=== PATIENT | male | born 1945 | race American Indian/Alaskan Native ===

== ENCOUNTER 2019-03-03 09:28 | Emergency (ER) | payer MEDICARE, OTHER ==
[~2019-03-03] VITALS: Ht 170.2 cm; Wt 135.4 kg
[~2019-03-03 09:28] MED LIST: CARV-49 PO; CHOL100046 PO; CLIN150C8 PO; DABI75CA3 PO; EXEN2VIA SUBCUT; FEXO-124 PO; FURO-150 PO; INSU100V36 SQ; IRON150C5 PO; ISOS30TA PO; LANTUS SQ; MAGN200T5 PO; ROSU10TA2 PO
[2019-03-03 09:43] VITALS: BP 138/78
== END 2019-03-03 12:19 | disposition home or self-care (01) ==
LOC: ER 09:29
DX: I99.8 Other disorder of circulatory system (principal); M79.645 Pain in left finger(s); I48.91 Unspecified atrial fibrillation; E78.00 Pure hypercholesterolemia, unspecified; I10 Essential (primary) hypertension; E11.9 Type 2 diabetes mellitus without complications; G89.29 Other chronic pain; Z98.890 Other specified postprocedural states; Z88.8 Allergy status to other drugs, medicaments and biological substances; Z79.4 Long term (current) use of insulin; Z79.899 Other long term (current) drug therapy
CPT/HCPCS: 93005; 99283

== ENCOUNTER 2019-03-09 17:51 | Emergency (ER) | payer MEDICARE, OTHER ==
[~2019-03-09] VITALS: Ht 167.6 cm; Wt 131.8 kg
[2019-03-09 18:11] VITALS: BP 135/73
[2019-03-09] MEDS ORDERED: HYDR-4383 PO (19:17)
== END 2019-03-09 19:35 | disposition home or self-care (01) ==
LOC: ER 17:52
DX: I99.8 Other disorder of circulatory system (principal); M79.645 Pain in left finger(s); I48.92 Unspecified atrial flutter; E78.00 Pure hypercholesterolemia, unspecified; I10 Essential (primary) hypertension; E11.9 Type 2 diabetes mellitus without complications; G89.29 Other chronic pain; Z98.890 Other specified postprocedural states; Z88.8 Allergy status to other drugs, medicaments and biological substances; Z79.2 Long term (current) use of antibiotics; Z79.4 Long term (current) use of insulin; Z79.899 Other long term (current) drug therapy
CPT/HCPCS: 99283

== ENCOUNTER 2019-03-14 09:41 | Emergency (ER) | payer MEDICARE, OTHER ==
[~2019-03-14] VITALS: Ht 170.2 cm; Wt 133.0 kg
[~2019-03-14 09:41] MED LIST changes: +HYDR-4383 PO
[2019-03-14 09:53] VITALS: BP 137/89
[2019-03-14] MEDS ORDERED: CEPH-571 PO (11:04)
== END 2019-03-14 11:12 | disposition home or self-care (01) ==
LOC: ER 09:42
DX: L03.012 Cellulitis of left finger (principal); I48.91 Unspecified atrial fibrillation; I10 Essential (primary) hypertension; E78.00 Pure hypercholesterolemia, unspecified; E11.9 Type 2 diabetes mellitus without complications; G89.29 Other chronic pain; M54.9 Dorsalgia, unspecified; Z88.8 Allergy status to other drugs, medicaments and biological substances; Z79.4 Long term (current) use of insulin
CPT/HCPCS: 73130; 99283

== ENCOUNTER 2019-03-22 14:15 | Outpatient (CLI) | payer MEDICARE, OTHER ==
[~2019-03-22 14:15] MED LIST changes: +CEPH-571 PO
== END 2019-03-22 23:59 | disposition home or self-care (01) ==
LOC: VAS 14:15
PROVIDERS: ATTEND Family Medicine
DX: L98.499 Non-pressure chronic ulcer of skin of other sites with unspecified severity (principal); R20.9 Unspecified disturbances of skin sensation; E11.9 Type 2 diabetes mellitus without complications
CPT/HCPCS: 93931

== ENCOUNTER 2019-08-15 10:53 | Emergency (ER) | payer MEDICARE, OTHER ==
[~2019-08-15] VITALS: Ht 170.2 cm; Wt 136.0 kg
[2019-08-15 12:59] VITALS: BP 142/75
== END 2019-08-15 13:01 | disposition home or self-care (01) ==
LOC: ER 10:54
DX: S20.212A Contusion of left front wall of thorax, initial encounter (principal); M25.532 Pain in left wrist; M25.562 Pain in left knee; I48.91 Unspecified atrial fibrillation; E78.00 Pure hypercholesterolemia, unspecified; I10 Essential (primary) hypertension; E11.9 Type 2 diabetes mellitus without complications; G89.29 Other chronic pain; Z98.890 Other specified postprocedural states; Z88.8 Allergy status to other drugs, medicaments and biological substances; Z79.2 Long term (current) use of antibiotics; Z79.4 Long term (current) use of insulin; Z79.899 Other long term (current) drug therapy; W10.1XXA Fall (on)(from) sidewalk curb, initial encounter; Y93.89 Activity, other specified; Y92.89 Other specified places as the place of occurrence of the external cause; Y99.8 Other external cause status
CPT/HCPCS: 71046; 73110; 73130; 73564; 93005; 99284

== ENCOUNTER 2019-11-01 15:42 | Emergency (ER) | payer MEDICARE, OTHER ==
[~2019-11-01] VITALS: Ht 170.2 cm; Wt 134.5 kg
[2019-11-01 15:52] VITALS: BP 141/62
[2019-11-01] MEDS ORDERED: SULF1TAB49 PO (17:13)
[2019-11-01] MEDS ORDERED: mupirocin 2% ointment 22GM TP STA (17:14)
== END 2019-11-01 17:25 | disposition home or self-care (01) ==
LOC: ER 15:43
DX: R21 Rash and other nonspecific skin eruption (principal); I48.91 Unspecified atrial fibrillation; E78.00 Pure hypercholesterolemia, unspecified; I10 Essential (primary) hypertension; E11.9 Type 2 diabetes mellitus without complications; G89.29 Other chronic pain; Z98.890 Other specified postprocedural states; Z88.8 Allergy status to other drugs, medicaments and biological substances; Z79.4 Long term (current) use of insulin; Z79.899 Other long term (current) drug therapy
CPT/HCPCS: 99283

== ENCOUNTER 2020-04-25 09:23 | Inpatient (IN) | payer MEDICARE, OTHER ==
[~2020-04-25] VITALS: Ht 170.2 cm; Wt 136.0 kg
--- NOTE | 2020-04-25 09:37 | NUR ---
Assumed care of patient. Xray at bedside.
[2020-04-25 10:00] LABS: BASOPHILS % (AUTO) 0.5 % (0-1); EOSINOPHILS # (AUTO) 0.2 X10'3 (0-0.9); EOSINOPHILS % (AUTO) 2.6 % (0-6); HEMATOCRIT 44.2 % (42.0-52.0); HEMOGLOBIN 14.4 g/dl (14.0-17.9); LYMPHOCYTES # (AUTO) 1.6 X10'3 (1.1-4.8); LYMPHOCYTES % (AUTO) 18.7 % (21-51); MEAN CORPUSCULAR HEMOGLOBIN 29.9 PG (27.0-31.0); MEAN CORPUSCULAR HGB CONC 32.5 g/dL (33.0-36.5); MEAN CORPUSCULAR VOLUME 92.1 FL (78-98); MONOCYTES # (AUTO) 0.8 X10'3 (0-0.9); MONOCYTES % (AUTO) 9.4 % (2-12); NEUTROPHILS # (AUTO) 6.1 X10'3 (1.8-7.7); NEUTROPHILS % (AUTO) 68.8 % (42-75); PLATELET COUNT 142 X10'3 (140-440); RED CELL DISTRIBUTION WIDTH 15.6 % (11.5-14.5); WHITE BLOOD COUNT 8.8 X10'3 (4.5-11.0)
[2020-04-25 10:08] LABS: PARTIAL THROMBOPLASTIN TIME 44 SECONDS (22-32)
[2020-04-25 10:11] LABS: ALANINE AMINOTRANSFERASE 51 U/L (12-78); ALBUMIN 2.6 G/DL (3.4-5.0); ALBUMIN/GLOBULIN RATIO 0.6 (1.1-1.5); ALKALINE PHOSPHATASE 140 IU/L (46-116); ANION GAP 8 (8-16); ASPARTATE AMINO TRANSFERASE 46 U/L (10-37); BILIRUBIN,TOTAL 0.8 MG/DL (0.1-1.0); BLOOD UREA NITROGEN 55 MG/DL (7-18); BUN/CREATININE RATIO 20.4 (5.4-32.0); CALCIUM 8.2 MG/DL (8.5-10.1); CHLORIDE 106 MMOL/L (99-107); CREATININE 2.69 MG/DL (0.60-1.10); GLUCOSE 105 MG/DL (70-104); POTASSIUM 4.4 MMOL/L (3.5-5.1); SODIUM 137 MMOL/L (135-145); TOTAL CARBON DIOXIDE 23.4 MMOL/L (24-32); TOTAL PROTEIN 7.2 G/DL (6.4-8.2); eGFR 23 ML/MIN
[2020-04-25 10:17] LABS: MAGNESIUM 2.7 MG/DL (1.5-2.4)
[2020-04-25] MEDS ORDERED: furosemide 10 MG/1 ML 10ml inj IV ONE (10:30)
--- NOTE | 2020-04-25 11:04 | NUR ---
Vascular at bedside.
[2020-04-25] MEDS ORDERED: MAGN500T2 PO (12:14)
[2020-04-25] MEDS ORDERED: DULA1.5P SQ (12:14)
[2020-04-25] MEDS ORDERED: FERR325T29 PO (12:14)
[2020-04-25] MEDS ORDERED: ROSU20TA31 PO (12:14)
[2020-04-25] MEDS ORDERED: CARV6.253 PO (12:14)
[2020-04-25] MEDS ORDERED: CHOL10002 PO (12:14)
[2020-04-25] MEDS ORDERED: NOVLG SQ (12:14)
[2020-04-25] MEDS ORDERED: FURO40TA4 PO (12:14)
[2020-04-25] MEDS ORDERED: LANTUS SQ (12:14)
[2020-04-25] MEDS ORDERED: FEXO-62 PO (12:14)
[2020-04-25] MEDS ORDERED: ISOS30TA6 PO (12:14)
[2020-04-25] MEDS ORDERED: DABI75CA3 PO (12:14)
[2020-04-25] MEDS ORDERED: acetaminophen 325mg tablet PO PRN (12:30)
[2020-04-25] MEDS ORDERED: mag hydrox/Alum hydrox/simeth 30ml oral suspension PO PRN (12:30)
[2020-04-25] MEDS ORDERED: ondansetron/PF 4mg/2ml inj IV PRN (12:30)
[2020-04-25] MEDS ORDERED: magnesium hydroxide 30ml (MOM) UD suspension PO PRN (12:30)
--- NOTE | 2020-04-25 14:30 | NUR ---
bs checked it was 72 pt given a snack
--- NOTE | 2020-04-25 14:41 | NUR ---
called report to tele to tessie zeng will call back
--- NOTE | 2020-04-25 15:11 | NUR ---
Finger stick BG 73. Pt given juice.
--- NOTE | 2020-04-25 15:21 | NUR ---
Patient in room ED 3. I have received report from Vilma GONGORA and had the opportunity to ask questions and assume patient care.
[2020-04-25 15:45] VITALS: BP 165/100
[2020-04-25 18:00] VITALS: BP 161/81
--- NOTE | 2020-04-25 18:43 | NUR ---
Problems reprioritized. Patient report given, questions answered & plan of care reviewed with Brittany GONGORA.
[2020-04-25] MEDS ORDERED: insulin Lispro (HumaLOG) vial - multi-dose SQ PRN (21:00)
[2020-04-25] MEDS: magnesium oxide 400mg tablet PO SCH (21:45)
[2020-04-25] MEDS: furosemide 40mg/4ml inj IV SCH (21:45)
[2020-04-25] MEDS: carvedilol 6.25mg tablet PO SCH (21:45)
[2020-04-25 22:50] LABS: HEMOGLOBIN A1C 7.9 % (4.5-6.2)
[2020-04-25 23:00] VITALS: BP 159/83
[2020-04-26 03:00] VITALS: BP 165/75
[2020-04-26 06:00] VITALS: BP 144/83
--- NOTE | 2020-04-26 06:00 | NUR ---
Patient in room PCU 3015. I have received report from Brittany GONGORA and had the opportunity to ask questions and assume patient care.
[2020-04-26 06:51] LABS: BASOPHILS % (AUTO) 0.5 % (0-1); EOSINOPHILS # (AUTO) 0.2 X10'3 (0-0.9); EOSINOPHILS % (AUTO) 2.5 % (0-6); HEMATOCRIT 42.4 % (42.0-52.0); HEMOGLOBIN 13.9 g/dl (14.0-17.9); LYMPHOCYTES # (AUTO) 1.6 X10'3 (1.1-4.8); LYMPHOCYTES % (AUTO) 19.4 % (21-51); MEAN CORPUSCULAR HEMOGLOBIN 30.4 PG (27.0-31.0); MEAN CORPUSCULAR HGB CONC 32.9 g/dL (33.0-36.5); MEAN CORPUSCULAR VOLUME 92.6 FL (78-98); MEAN PLATELET VOLUME 9.1 FL (7.4-10.4); MONOCYTES # (AUTO) 0.8 X10'3 (0-0.9); MONOCYTES % (AUTO) 9.4 % (2-12); NEUTROPHILS # (AUTO) 5.7 X10'3 (1.8-7.7); NEUTROPHILS % (AUTO) 68.2 % (42-75); PLATELET COUNT 131 X10'3 (140-440); RED BLOOD COUNT 4.58 X10'6 (4.70-6.10); RED CELL DISTRIBUTION WIDTH 15.6 % (11.5-14.5); WHITE BLOOD COUNT 8.4 X10'3 (4.5-11.0)
[2020-04-26 07:06] LABS: ALBUMIN 2.5 G/DL (3.4-5.0); ANION GAP 7 (8-16); BLOOD UREA NITROGEN 56 MG/DL (7-18); BUN/CREATININE RATIO 21.4 (5.4-32.0); CALCIUM 8.1 MG/DL (8.5-10.1); CHLORIDE 107 MMOL/L (99-107); CREATININE 2.62 MG/DL (0.60-1.10); GLUCOSE 79 MG/DL (70-104); SODIUM 140 MMOL/L (135-145); TOTAL CARBON DIOXIDE 26.3 MMOL/L (24-32); eGFR 24 ML/MIN
[2020-04-26 07:07] LABS: POTASSIUM 4.6 MMOL/L (3.5-5.1)
[2020-04-26] MEDS: carvedilol 6.25mg tablet PO SCH ×2 (08:00→20:13)
[2020-04-26] MEDS ORDERED: insulin glargine (Lantus) pen - multi-dose SQ SCH (08:00)
[2020-04-26] MEDS: atorvastatin 20mg tablet PO SCH (08:24)
[2020-04-26] MEDS: isosorbide mononitrate 30mg tab.SR.24H PO SCH (08:25)
[2020-04-26] MEDS: loratadine 10mg tablet PO SCH (08:25)
[2020-04-26] MEDS: ferrous sulfate 325mg tablet PO SCH (08:25)
[2020-04-26] MEDS: furosemide 40mg/4ml inj IV SCH ×2 (08:25→20:13)
[2020-04-26] MEDS: vitamin D (cholecalciferol) 1,000 unit tablet PO SCH (08:26)
--- NOTE | 2020-04-26 09:47 | NUR ---
Bryson MCKENNA made aware during rounds that dose of Coreg was held d/t irregular HR that drops as low as the 30s. No new orders received.
[2020-04-26 11:00] VITALS: BP 158/76
--- NOTE | 2020-04-26 14:18 | NUR ---
Pt with T2DM, current A1c is 7.9%. Pt seen at bedside reports he sees his MD q 3 months, takes his medications per rx, and checks his BG levels 3-4 times a day with resulting numbers 76-89 in the morning and 130s in later in the day. Pt states he doesn't follow any specific diet however tries to monitor his CHO intake overall. Pt provided with written and verbal DM education and RD contact information. Pt endorses a good appetite and states he's getting full from meals, documented with 75% PO intake at dinner last night on heart healthy diet, pending further documentation of PO intake for today. BG levels well controlled since admit, mostly in the 70s. Pt would benefit from the addition of CHO controlled diet if BG levels increase. Pt denies food allergies, difficulty chewing/swallowing, or constipation/diarrhea. Will continue to follow. Addendum: 04/26/20 at [address] Amended: Links added.
[2020-04-26 15:00] VITALS: BP 162/72
[2020-04-26 18:00] VITALS: BP 157/80
--- NOTE | 2020-04-26 18:20 | NUR ---
Patient in room PCU 3015. I have received report from Leona GONGORA and had the opportunity to ask questions and assume patient care.
--- NOTE | 2020-04-26 18:35 | NUR ---
Problems reprioritized. Patient report given, questions answered & plan of care reviewed with Claudy GONGORA.
[2020-04-26] MEDS: magnesium oxide 400mg tablet PO SCH (20:13)
--- NOTE | 2020-04-26 21:38 | NUR ---
Page Sent PAGER ID: [phone] MESSAGE: pt in [id number] Tio Pitts 74 y/o male here for exac diastolic heart failure, type 2 W[place], he has DM type 2. pt has orders to check FSBG AC/HS, 2100 BG 226, can we put him on our hyperglycemic protocol.- Claudy [phone]
--- NOTE | 2020-04-26 21:46 | NUR ---
spoke w/ Dr. Dexter regarding hyperglycemic protocol, recieved order to place pt on hyper/hypoglycemic protocol.
[2020-04-26] MEDS ORDERED: dextrose 50%-water 50ml dispensing syringe IV PRN ×2 (21:50)
[2020-04-26] MEDS ORDERED: glucagon, human recombinant 1mg kit SUBCUT PRN (21:50)
[2020-04-26] MEDS ORDERED: MESSAGE TO PHARMACY PO ONE (21:50)
[2020-04-26] MEDS ORDERED: dextrose ORAL solution 15 GM/59 ML bottle PO PRN ×2 (21:50)
[2020-04-26 22:00] VITALS: BP 152/77
[2020-04-26] MEDS: insulin glargine (Lantus) pen - multi-dose SQ SCH (22:58)
[2020-04-27] VITALS (7 sets, daily range): BP systolic 136–183; BP diastolic 71–145
--- NOTE | 2020-04-27 06:00 | NUR ---
Patient in room PCU 3015. I have received report from Claudy GONGORA and had the opportunity to ask questions and assume patient care.
--- NOTE | 2020-04-27 06:12 | NUR ---
Problems reprioritized. Patient report given, questions answered & plan of care reviewed with Leona GONGORA.
[2020-04-27 06:23] LABS: BASOPHILS % (AUTO) 0.4 % (0-1); EOSINOPHILS # (AUTO) 0.2 X10'3 (0-0.9); EOSINOPHILS % (AUTO) 2.3 % (0-6); HEMATOCRIT 42.6 % (42.0-52.0); LYMPHOCYTES # (AUTO) 1.4 X10'3 (1.1-4.8); LYMPHOCYTES % (AUTO) 16.3 % (21-51); MEAN CORPUSCULAR HEMOGLOBIN 30.1 PG (27.0-31.0); MEAN CORPUSCULAR HGB CONC 32.8 g/dL (33.0-36.5); MEAN CORPUSCULAR VOLUME 91.7 FL (78-98); MEAN PLATELET VOLUME 9.1 FL (7.4-10.4); MONOCYTES # (AUTO) 0.9 X10'3 (0-0.9); NEUTROPHILS # (AUTO) 6.1 X10'3 (1.8-7.7); PLATELET COUNT 129 X10'3 (140-440); RED BLOOD COUNT 4.65 X10'6 (4.70-6.10); RED CELL DISTRIBUTION WIDTH 15.4 % (11.5-14.5); WHITE BLOOD COUNT 8.6 X10'3 (4.5-11.0)
[2020-04-27 06:25] LABS: ALBUMIN 2.5 G/DL (3.4-5.0); ANION GAP 9 (8-16); BLOOD UREA NITROGEN 66 MG/DL (7-18); BUN/CREATININE RATIO 23.2 (5.4-32.0); CHLORIDE 107 MMOL/L (99-107); CREATININE 2.84 MG/DL (0.60-1.10); GLUCOSE 146 MG/DL (70-104); POTASSIUM 4.5 MMOL/L (3.5-5.1); SODIUM 139 MMOL/L (135-145); eGFR 22 ML/MIN
[2020-04-27] MEDS: atorvastatin 20mg tablet PO SCH (07:51)
[2020-04-27] MEDS: isosorbide mononitrate 30mg tab.SR.24H PO SCH (07:51)
[2020-04-27] MEDS: loratadine 10mg tablet PO SCH (07:51)
[2020-04-27] MEDS: vitamin D (cholecalciferol) 1,000 unit tablet PO SCH (07:51)
[2020-04-27] MEDS: ferrous sulfate 325mg tablet PO SCH (07:51)
[2020-04-27] MEDS: furosemide 40mg/4ml inj IV SCH ×2 (07:52→20:15)
[2020-04-27] MEDS: carvedilol 6.25mg tablet PO SCH ×2 (08:00→20:14)
[2020-04-27] MEDS: insulin Lispro (HumaLOG) vial - multi-dose SQ SCH ×2 (09:37→18:58)
--- NOTE | 2020-04-27 14:37 | NUR ---
Made Bryson MCKENNA aware of SBP in 170s. Rechecked manually bilaterally. No new orders received. Will continue to monitor.
--- NOTE | 2020-04-27 18:35 | NUR ---
Patient in room PCU 3015. I have received report from Leona GONGORA and had the opportunity to ask questions and assume patient care.
--- NOTE | 2020-04-27 18:44 | NUR ---
Problems reprioritized. Patient report given, questions answered & plan of care reviewed with Claudy GONGORA.
[2020-04-27] MEDS: magnesium oxide 400mg tablet PO SCH (20:14)
[2020-04-27] MEDS: insulin glargine (Lantus) pen - multi-dose SQ SCH (21:13)
[2020-04-28 02:00] VITALS: BP 128/77
[2020-04-28 06:21] LABS: BASOPHILS % (AUTO) 0.4 % (0-1); EOSINOPHILS # (AUTO) 0.2 X10'3 (0-0.9); EOSINOPHILS % (AUTO) 1.8 % (0-6); HEMATOCRIT 43.4 % (42.0-52.0); HEMOGLOBIN 14.2 g/dl (14.0-17.9); LYMPHOCYTES # (AUTO) 1.4 X10'3 (1.1-4.8); LYMPHOCYTES % (AUTO) 15.6 % (21-51); MEAN CORPUSCULAR HEMOGLOBIN 30.2 PG (27.0-31.0); MEAN CORPUSCULAR HGB CONC 32.7 g/dL (33.0-36.5); MEAN CORPUSCULAR VOLUME 92.4 FL (78-98); MEAN PLATELET VOLUME 9.5 FL (7.4-10.4); MONOCYTES # (AUTO) 0.8 X10'3 (0-0.9); MONOCYTES % (AUTO) 9.2 % (2-12); NEUTROPHILS # (AUTO) 6.6 X10'3 (1.8-7.7); PLATELET COUNT 132 X10'3 (140-440); RED CELL DISTRIBUTION WIDTH 15.2 % (11.5-14.5); WHITE BLOOD COUNT 9.1 X10'3 (4.5-11.0)
--- NOTE | 2020-04-28 06:39 | NUR ---
Patient in room PCU 3015. I have received report from Claudy GONGORA and had the opportunity to ask questions and assume patient care.
--- NOTE | 2020-04-28 06:42 | NUR ---
Problems reprioritized. Patient report given, questions answered & plan of care reviewed with Jenni GONGORA.
[2020-04-28 06:49] LABS: ALBUMIN 2.7 G/DL (3.4-5.0); ANION GAP 11 (8-16); BLOOD UREA NITROGEN 69 MG/DL (7-18); BUN/CREATININE RATIO 23.9 (5.4-32.0); CALCIUM 7.9 MG/DL (8.5-10.1); CHLORIDE 106 MMOL/L (99-107); CREATININE 2.89 MG/DL (0.60-1.10); GLUCOSE 137 MG/DL (70-104); POTASSIUM 4.3 MMOL/L (3.5-5.1); SODIUM 140 MMOL/L (135-145); TOTAL CARBON DIOXIDE 22.6 MMOL/L (24-32); eGFR 22 ML/MIN
[2020-04-28 07:00] VITALS: BP 138/81
[2020-04-28] MEDS: loratadine 10mg tablet PO SCH (07:28)
[2020-04-28] MEDS: vitamin D (cholecalciferol) 1,000 unit tablet PO SCH (07:28)
[2020-04-28] MEDS: furosemide 40mg/4ml inj IV SCH ×2 (07:28→19:06)
[2020-04-28] MEDS: isosorbide mononitrate 30mg tab.SR.24H PO SCH (07:28)
[2020-04-28] MEDS: atorvastatin 20mg tablet PO SCH (07:29)
[2020-04-28] MEDS: carvedilol 6.25mg tablet PO SCH ×2 (07:29→19:06)
[2020-04-28] MEDS: ferrous sulfate 325mg tablet PO SCH (07:29)
[2020-04-28] MEDS: insulin Lispro (HumaLOG) vial - multi-dose SQ SCH ×3 (08:00→18:49)
[2020-04-28 11:00] VITALS: BP 146/68
[2020-04-28 15:00] VITALS: BP 156/85
--- NOTE | 2020-04-28 18:35 | NUR ---
Patient in room PCU 3015. I have received report from Jenni GONGORA and had the opportunity to ask questions and assume patient care.
[2020-04-28 19:00] VITALS: BP 190/71
[2020-04-28] MEDS ORDERED: hydrALAZINE 20mg/ml inj. IV PRN (19:20)
[2020-04-28] MEDS: magnesium oxide 400mg tablet PO SCH (20:47)
[2020-04-28] MEDS ORDERED: insulin glargine (Lantus) pen - multi-dose SQ SCH (21:00)
[2020-04-28 22:00] VITALS: BP 153/79
[2020-04-29 02:00] VITALS: BP 158/98
--- NOTE | 2020-04-29 06:14 | NUR ---
Problems reprioritized. Patient report given, questions answered & plan of care reviewed with MANGO GONGORA.
[2020-04-29 06:18] LABS: BASOPHILS % (AUTO) 0.4 % (0-1); EOSINOPHILS # (AUTO) 0.2 X10'3 (0-0.9); EOSINOPHILS % (AUTO) 2.7 % (0-6); HEMATOCRIT 43.9 % (42.0-52.0); HEMOGLOBIN 14.3 g/dl (14.0-17.9); LYMPHOCYTES # (AUTO) 1.7 X10'3 (1.1-4.8); LYMPHOCYTES % (AUTO) 18.7 % (21-51); MEAN CORPUSCULAR HEMOGLOBIN 30.1 PG (27.0-31.0); MEAN CORPUSCULAR HGB CONC 32.5 g/dL (33.0-36.5); MEAN CORPUSCULAR VOLUME 92.7 FL (78-98); MEAN PLATELET VOLUME 9.3 FL (7.4-10.4); MONOCYTES # (AUTO) 0.8 X10'3 (0-0.9); MONOCYTES % (AUTO) 8.9 % (2-12); NEUTROPHILS # (AUTO) 6.3 X10'3 (1.8-7.7); NEUTROPHILS % (AUTO) 69.3 % (42-75); PLATELET COUNT 129 X10'3 (140-440); RED BLOOD COUNT 4.74 X10'6 (4.70-6.10); RED CELL DISTRIBUTION WIDTH 15.2 % (11.5-14.5); WHITE BLOOD COUNT 9.1 X10'3 (4.5-11.0)
[2020-04-29 06:29] LABS: ALBUMIN 2.6 G/DL (3.4-5.0); ANION GAP 11 (8-16); BLOOD UREA NITROGEN 68 MG/DL (7-18); BUN/CREATININE RATIO 23.9 (5.4-32.0); CHLORIDE 107 MMOL/L (99-107); CREATININE 2.85 MG/DL (0.60-1.10); GLUCOSE 85 MG/DL (70-104); POTASSIUM 4.3 MMOL/L (3.5-5.1); SODIUM 141 MMOL/L (135-145); TOTAL CARBON DIOXIDE 22.7 MMOL/L (24-32); eGFR 22 ML/MIN
--- NOTE | 2020-04-29 06:37 | NUR ---
Patient in room PCU 3015. I have received report from Ree GONGORA and had the opportunity to ask questions and assume patient care.
[2020-04-29 07:00] VITALS: BP 133/76
[2020-04-29] MEDS ORDERED: (Dulaglutide (Trulicity) 0.5 ML) SQ SCH (08:00)
[2020-04-29] MEDS: furosemide 40mg/4ml inj IV SCH (08:32)
[2020-04-29] MEDS: carvedilol 6.25mg tablet PO SCH (08:33)
[2020-04-29] MEDS: isosorbide mononitrate 30mg tab.SR.24H PO SCH (08:33)
[2020-04-29] MEDS: loratadine 10mg tablet PO SCH (08:33)
[2020-04-29] MEDS: vitamin D (cholecalciferol) 1,000 unit tablet PO SCH (08:33)
[2020-04-29] MEDS: ferrous sulfate 325mg tablet PO SCH (08:33)
[2020-04-29] MEDS: atorvastatin 20mg tablet PO SCH (08:33)
[2020-04-29] MEDS: insulin Lispro (HumaLOG) vial - multi-dose SQ SCH (08:46)
[2020-04-29 11:00] VITALS: BP 161/72
[2020-04-29] MEDS ORDERED: CARV3.12 PO (11:07)
--- NOTE | 2020-04-29 12:48 | NUR ---
Patient stable for discharge per MD orders. All discharge instructions reviewed with patient and all questions answered. New prescription called into pharmacy, home medications retreived from pharmacy and given to patien. PIV discontinued, cannula intact. Telemetry discontinued, telesales professional notified. Belongings collected and sent with patient. Patient picked up by family memeber in private vehicle, wheeled to lobby by staff.
--- NOTE | 2020-05-02 09:27 | NUR ---
Case Management DC follow up: spoke to pt via telephone. S/P: SOB Reports: "doing pretty good, still winded when walking around". Denies: acute cp, SOB at rest, resp distress, vertigo, syncope,weakness, blurry vision, N/V, HARTLEY, emergent general pain, abd tenderness/distension, fever. Verbalizes understanding of s/s that warrant 9-11/ER visit for evaluation. Verbalizes understanding of new Rx lower dose Coreg and why prescribed, resumes current Rx/taking as ordered, no ase r/t polypharmacy. Acknowledges need to schedule/keep follow up appts w/ PCP/Elena, Harmeet Cota, will refer pt to dentures lab technician & discuss adjusting lantus dose; pt states wakes up around 4am with BG very low; Wilfred, pt agrees to call and schedule follow up. Needs met, questions answered at DC, no further questions at this time. Addendum: 05/02/20 at 0931 by Rosa Elena Martin RN pt will see PCP/Dr Parker today, 05/02/20.
[2020-05-11] MEDS ORDERED: CARV3.122 PO (23:38)
== END 2020-04-29 12:36 | disposition home health service (06) | DRG 280 ==
LOC: ER 09:24 → ED HOLD 12:27 → PCU 3S 16:00
PROVIDERS: ADMIT Family Medicine; ATTEND Family Medicine
DX: I13.0 Hypertensive heart and chronic kidney disease with heart failure and stage 1 through stage 4 chronic kidney disease, or unspecified chronic kidney disease (principal); I21.A1 Myocardial infarction type 2; I50.33 Acute on chronic diastolic (congestive) heart failure; N17.9 Acute kidney failure, unspecified; I48.91 Unspecified atrial fibrillation; K21.9 Gastro-esophageal reflux disease without esophagitis; E78.00 Pure hypercholesterolemia, unspecified; E78.5 Hyperlipidemia, unspecified; Z90.49 Acquired absence of other specified parts of digestive tract; E11.22 Type 2 diabetes mellitus with diabetic chronic kidney disease; N18.9 Chronic kidney disease, unspecified; G89.29 Other chronic pain; M54.9 Dorsalgia, unspecified
CPT/HCPCS: 36415; 71045; 80048; 80053; 82800; 82948; 83036; 83735; 83880; 84484; 85025; 85610; 85730; 87081; 93005; 93306; 93971; 97110; 97116; 97162; 97530; 99285; G0378; J1815; J1940

== ENCOUNTER 2020-05-17 00:30 | Emergency (ER) | payer OTHER, MEDICARE ==
[~2020-05-17] VITALS: Ht 170.2 cm; Wt 136.4 kg
[~2020-05-17 00:30] MED LIST changes: -CARV-49 PO; -CEPH-571 PO; +CHOL10002 PO; -CHOL100046 PO; -CLIN150C8 PO; +CLON-529 PO; +DULA1.5P SQ; -EXEN2VIA SUBCUT; -FEXO-124 PO; +FEXO-62 PO; -FURO-150 PO; +FURO40TA4 PO; +HYDR-4069 PO; +HYDR-4070 PO; -HYDR-4383 PO; -INSU100V36 SQ; -IRON150C5 PO; -ISOS30TA PO; +ISOS30TA6 PO; -LANTUS SQ; -MAGN200T5 PO; +MAGN500T2 PO; +NOVLG SQ; -ROSU10TA2 PO; +ROSU20TA31 PO
[2020-05-17 01:02] LABS: BASOPHILS # (AUTO) 0.1 X10'3 (0-0.2); BASOPHILS % (AUTO) 0.7 % (0-1); EOSINOPHILS # (AUTO) 0.2 X10'3 (0-0.9); EOSINOPHILS % (AUTO) 2.7 % (0-6); HEMATOCRIT 40.5 % (42.0-52.0); HEMOGLOBIN 13.1 g/dl (14.0-17.9); LYMPHOCYTES # (AUTO) 1.3 X10'3 (1.1-4.8); LYMPHOCYTES % (AUTO) 17.6 % (21-51); MEAN CORPUSCULAR HEMOGLOBIN 29.7 PG (27.0-31.0); MEAN CORPUSCULAR HGB CONC 32.3 g/dL (33.0-36.5); MEAN CORPUSCULAR VOLUME 91.9 FL (78-98); MEAN PLATELET VOLUME 9.4 FL (7.4-10.4); MONOCYTES # (AUTO) 0.8 X10'3 (0-0.9); MONOCYTES % (AUTO) 9.8 % (2-12); NEUTROPHILS # (AUTO) 5.3 X10'3 (1.8-7.7); NEUTROPHILS % (AUTO) 69.2 % (42-75); PLATELET COUNT 107 X10'3 (140-440); RED CELL DISTRIBUTION WIDTH 15.5 % (11.5-14.5); WHITE BLOOD COUNT 7.7 X10'3 (4.5-11.0)
[2020-05-17 01:17] LABS: ALANINE AMINOTRANSFERASE 19 U/L (12-78); ALBUMIN 2.5 G/DL (3.4-5.0); ALBUMIN/GLOBULIN RATIO 0.5 (1.1-1.5); ALKALINE PHOSPHATASE 107 IU/L (46-116); ANION GAP 6 (8-16); ASPARTATE AMINO TRANSFERASE 23 U/L (10-37); BLOOD UREA NITROGEN 49 MG/DL (7-18); BUN/CREATININE RATIO 19.4 (5.4-32.0); CALCIUM 8.1 MG/DL (8.5-10.1); CHLORIDE 104 MMOL/L (99-107); CREATININE 2.52 MG/DL (0.60-1.10); GLUCOSE 157 MG/DL (70-104); POTASSIUM 3.4 MMOL/L (3.5-5.1); SODIUM 138 MMOL/L (135-145); TOTAL CARBON DIOXIDE 27.9 MMOL/L (24-32); TOTAL PROTEIN 7.2 G/DL (6.4-8.2); eGFR 25 ML/MIN
[2020-05-17] MEDS ORDERED: FERR325T28 PO (01:24)
[2020-05-17 03:49] VITALS: BP 180/91
== END 2020-05-17 03:51 | disposition home or self-care (01) ==
LOC: ER 00:31
DX: R06.02 Shortness of breath (principal); I50.32 Chronic diastolic (congestive) heart failure; M19.90 Unspecified osteoarthritis, unspecified site; I48.91 Unspecified atrial fibrillation; E78.00 Pure hypercholesterolemia, unspecified; I10 Essential (primary) hypertension; E11.649 Type 2 diabetes mellitus with hypoglycemia without coma; G89.29 Other chronic pain; Z98.890 Other specified postprocedural states; Z88.8 Allergy status to other drugs, medicaments and biological substances; Z79.899 Other long term (current) drug therapy
CPT/HCPCS: 36415; 71045; 80053; 83735; 83880; 84484; 85025; 93005; 99285

== ENCOUNTER 2020-05-19 11:04 | Emergency (ER) | payer OTHER, MEDICARE ==
[~2020-05-19] VITALS: Ht 170.2 cm; Wt 140.0 kg
[~2020-05-19 11:04] MED LIST changes: +FERR325T28 PO
[2020-05-19 12:13] LABS: BASOPHILS % (AUTO) 0.7 % (0-1); EOSINOPHILS # (AUTO) 0.3 X10'3 (0-0.9); EOSINOPHILS % (AUTO) 4.3 % (0-6); HEMATOCRIT 41.3 % (42.0-52.0); HEMOGLOBIN 13.3 g/dl (14.0-17.9); LYMPHOCYTES # (AUTO) 1.5 X10'3 (1.1-4.8); LYMPHOCYTES % (AUTO) 24.7 % (21-51); MEAN CORPUSCULAR HEMOGLOBIN 29.4 PG (27.0-31.0); MEAN CORPUSCULAR HGB CONC 32.2 g/dL (33.0-36.5); MEAN CORPUSCULAR VOLUME 91.3 FL (78-98); MEAN PLATELET VOLUME 10.8 FL (7.4-10.4); MONOCYTES # (AUTO) 0.6 X10'3 (0-0.9); MONOCYTES % (AUTO) 9.6 % (2-12); NEUTROPHILS # (AUTO) 3.7 X10'3 (1.8-7.7); NEUTROPHILS % (AUTO) 60.7 % (42-75); PLATELET COUNT 111 X10'3 (140-440); RED BLOOD COUNT 4.53 X10'6 (4.70-6.10); RED CELL DISTRIBUTION WIDTH 15.7 % (11.5-14.5); WHITE BLOOD COUNT 6.1 X10'3 (4.5-11.0)
[2020-05-19 12:22] LABS: ALANINE AMINOTRANSFERASE 21 U/L (12-78); ALBUMIN 2.6 G/DL (3.4-5.0); ALBUMIN/GLOBULIN RATIO 0.6 (1.1-1.5); ALKALINE PHOSPHATASE 107 IU/L (46-116); ANION GAP 9 (8-16); ASPARTATE AMINO TRANSFERASE 25 U/L (10-37); BILIRUBIN,TOTAL 1.1 MG/DL (0.1-1.0); BLOOD UREA NITROGEN 50 MG/DL (7-18); BUN/CREATININE RATIO 20.7 (5.4-32.0); CALCIUM 8.1 MG/DL (8.5-10.1); CHLORIDE 105 MMOL/L (99-107); CREATININE 2.41 MG/DL (0.60-1.10); GLUCOSE 169 MG/DL (70-104); POTASSIUM 3.8 MMOL/L (3.5-5.1); SODIUM 139 MMOL/L (135-145); TOTAL CARBON DIOXIDE 24.7 MMOL/L (24-32); TOTAL PROTEIN 7.3 G/DL (6.4-8.2); eGFR 27 ML/MIN
--- NOTE | 2020-05-19 12:34 | NUR ---
Discussed pt's BG w/ YOAN Frederick; no new orders received.
[2020-05-19 12:44] LABS: LARGE PLATELETS FEW; PLATELET ESTIMATE DECREASED
[2020-05-19] MEDS ORDERED: furosemide 10 MG/1 ML 10ml inj IV ONE (12:50)
--- NOTE | 2020-05-19 13:02 | NUR ---
Nikko Rogers/ [facility] called pt while in the room. UPdated her o pt's status after obtaining pt consent. She related, pt just ope under Home Health yesterday with 3x/wk home visits planned.
[2020-05-19 15:22] VITALS: BP 179/82
== END 2020-05-19 15:51 | disposition home or self-care (01) ==
LOC: ER 11:04
DX: R07.89 Other chest pain (principal); M19.90 Unspecified osteoarthritis, unspecified site; I48.91 Unspecified atrial fibrillation; I50.9 Heart failure, unspecified; I13.0 Hypertensive heart and chronic kidney disease with heart failure and stage 1 through stage 4 chronic kidney disease, or unspecified chronic kidney disease; E78.00 Pure hypercholesterolemia, unspecified; N18.9 Chronic kidney disease, unspecified; E11.22 Type 2 diabetes mellitus with diabetic chronic kidney disease; R06.02 Shortness of breath; G89.29 Other chronic pain; Z98.890 Other specified postprocedural states; Z79.899 Other long term (current) drug therapy; Z79.4 Long term (current) use of insulin
CPT/HCPCS: 36415; 71045; 80053; 84484; 85025; 93005; 96374; 99285; J1940

== ENCOUNTER 2020-06-14 10:14 | Emergency (ER) | payer OTHER, MEDICARE ==
[~2020-06-14] VITALS: Ht 170.2 cm; Wt 136.4 kg
[~2020-06-14 10:14] MED LIST changes: +AMLO10TA13 PO; -CLON-529 PO; +CLON0.1T2 PO; +FURO-150 PO; -FURO40TA4 PO; -HYDR-4069 PO; -HYDR-4070 PO; +HYDR100T27 PO; +LISI40TA4 PO
[2020-06-14 11:12] LABS: BASOPHILS % (AUTO) 0.7 % (0-1); HEMATOCRIT 35.1 % (42.0-52.0); HEMOGLOBIN 11.5 g/dl (14.0-17.9); LYMPHOCYTES # (AUTO) 1.2 X10'3 (1.1-4.8); LYMPHOCYTES % (AUTO) 24.6 % (21-51); MEAN CORPUSCULAR HEMOGLOBIN 29.5 PG (27.0-31.0); MEAN CORPUSCULAR HGB CONC 32.7 g/dL (33.0-36.5); MEAN CORPUSCULAR VOLUME 90.2 FL (78-98); MEAN PLATELET VOLUME 9.9 FL (7.4-10.4); MONOCYTES # (AUTO) 0.5 X10'3 (0-0.9); MONOCYTES % (AUTO) 10.6 % (2-12); NEUTROPHILS % (AUTO) 63.1 % (42-75); PLATELET COUNT 99 X10'3 (140-440); RED BLOOD COUNT 3.89 X10'6 (4.70-6.10); RED CELL DISTRIBUTION WIDTH 15.2 % (11.5-14.5); WHITE BLOOD COUNT 4.8 X10'3 (4.5-11.0)
[2020-06-14 11:33] LABS: ALANINE AMINOTRANSFERASE 32 U/L (12-78); ALBUMIN 2.8 G/DL (3.4-5.0); ALBUMIN/GLOBULIN RATIO 0.6 (1.1-1.5); ALKALINE PHOSPHATASE 92 IU/L (46-116); ANION GAP 10 (8-16); ASPARTATE AMINO TRANSFERASE 45 U/L (10-37); BILIRUBIN,TOTAL 1.1 MG/DL (0.1-1.0); BLOOD UREA NITROGEN 47 MG/DL (7-18); BUN/CREATININE RATIO 17.8 (5.4-32.0); CALCIUM 7.9 MG/DL (8.5-10.1); CHLORIDE 99 MMOL/L (99-107); CREATININE 2.64 MG/DL (0.60-1.10); GLUCOSE 157 MG/DL (70-104); SODIUM 132 MMOL/L (135-145); TOTAL CARBON DIOXIDE 23.2 MMOL/L (24-32); TOTAL PROTEIN 7.8 G/DL (6.4-8.2); eGFR 24 ML/MIN
[2020-06-14 12:28] LABS: CLARITY,URINE CLEAR (Clear); COLOR,URINE YELLOW (Yellow); GLUCOSE, URINE NEGATIVE (Neg); KETONES,URINE NEGATIVE (Neg); LEUKOCYTE ESTERASE ,URINE NEGATIVE (Neg); NITRITES, URINE NEGATIVE (Neg); OCCULT BLOOD,URINE SMALL (Neg); PH,URINE 6.5 (4.8-8.0); PROTEIN,URINE >=300 mg/dl (Neg); UROBILINOGEN,URINE 0.2 E.U/dL (0.2-1.0)
[2020-06-14 12:33] LABS: RBC,URINE 20-50 /HPF (0-2); UA COLLECTION TYPE CLN CATCH MIDSTREAM; WBC,URINE 0-4 /HPF (0-4)
[2020-06-14 12:34] LABS: BACTERIA,URINE NONE SEEN /HPF (Neg); MUCUS STRANDS FEW /LPF (Neg); SQUAMOUS EPITHELIAL CELL,UR NONE SEEN /LPF (FEW)
[2020-06-14 13:14] VITALS: BP 142/76
[2020-06-14 13:22] LABS: OCCULT BLOOD STOOL NEGATIVE (Neg)
== END 2020-06-14 13:23 | disposition home or self-care (01) ==
LOC: ER 10:15
DX: N18.9 Chronic kidney disease, unspecified (principal); R19.7 Diarrhea, unspecified; I50.9 Heart failure, unspecified; I48.91 Unspecified atrial fibrillation; E78.00 Pure hypercholesterolemia, unspecified; I13.0 Hypertensive heart and chronic kidney disease with heart failure and stage 1 through stage 4 chronic kidney disease, or unspecified chronic kidney disease; E11.22 Type 2 diabetes mellitus with diabetic chronic kidney disease; G89.29 Other chronic pain; Z98.890 Other specified postprocedural states; Z88.8 Allergy status to other drugs, medicaments and biological substances; Z79.4 Long term (current) use of insulin; Z79.899 Other long term (current) drug therapy
CPT/HCPCS: 74176; 80053; 81001; 82272; 82948; 85025; 99284

== ENCOUNTER 2020-06-16 11:04 | Inpatient (IN) | payer OTHER, MEDICARE ==
[~2020-06-16] VITALS: Ht 180.3 cm; Wt 136.4 kg
[2020-06-16] MEDS ORDERED: acetaminophen 325mg tablet PO STA (11:19)
[2020-06-16] MEDS ORDERED: dexamethasone sod phosphate 10mg/ml inj IV STA (11:39)
[2020-06-16] MEDS ORDERED: azithromycin/NS 500mg/250ml 250 ML IV ONE (11:40)
[2020-06-16] MEDS ORDERED: CefTRIAXone 2gm/D5W 50ml 50 ML IV ONE (11:40)
[2020-06-16 11:52] LABS: BASOPHILS % (AUTO) 0.3 % (0-1); EOSINOPHILS % (AUTO) 0.7 % (0-6); HEMATOCRIT 33.2 % (42.0-52.0); HEMOGLOBIN 10.8 g/dl (14.0-17.9); LYMPHOCYTES % (AUTO) 15.5 % (21-51); MEAN CORPUSCULAR HEMOGLOBIN 28.9 PG (27.0-31.0); MEAN CORPUSCULAR HGB CONC 32.6 g/dL (33.0-36.5); MEAN CORPUSCULAR VOLUME 88.9 FL (78-98); MEAN PLATELET VOLUME 9.6 FL (7.4-10.4); MONOCYTES # (AUTO) 0.6 X10'3 (0-0.9); MONOCYTES % (AUTO) 8.5 % (2-12); PLATELET COUNT 106 X10'3 (140-440); RED BLOOD COUNT 3.74 X10'6 (4.70-6.10); RED CELL DISTRIBUTION WIDTH 15.5 % (11.5-14.5); WHITE BLOOD COUNT 6.6 X10'3 (4.5-11.0)
[2020-06-16 11:59] LABS: D-DIMER 2.75 MG/L FEU (0-0.50)
[2020-06-16 12:00] LABS: ALANINE AMINOTRANSFERASE 30 U/L (12-78); ALBUMIN 2.6 G/DL (3.4-5.0); ALBUMIN/GLOBULIN RATIO 0.5 (1.1-1.5); ALKALINE PHOSPHATASE 85 IU/L (46-116); ANION GAP 14 (8-16); ASPARTATE AMINO TRANSFERASE 51 U/L (10-37); BILIRUBIN,TOTAL 1.3 MG/DL (0.1-1.0); BLOOD UREA NITROGEN 52 MG/DL (7-18); BUN/CREATININE RATIO 17.9 (5.4-32.0); CALCIUM 7.8 MG/DL (8.5-10.1); CHLORIDE 99 MMOL/L (99-107); GLUCOSE 177 MG/DL (70-104); SODIUM 134 MMOL/L (135-145); TOTAL CARBON DIOXIDE 21.1 MMOL/L (24-32); TOTAL PROTEIN 7.8 G/DL (6.4-8.2); eGFR 21 ML/MIN
[2020-06-16] MEDS ORDERED: CefTRIAXone inj 2,000 MG in normal saline 100ml IV soln 100 ML IV ONE (12:00)
[2020-06-16] MEDS ORDERED: furosemide 10 MG/1 ML 10ml inj IV ONE (12:15)
[2020-06-16 12:45] LABS: ABG BASE EXCESS -3.5 mmol/L (-2.0-2.0); ABG HCO3 19.4 mmol/L (22.0-26.0); ABG OXYGEN SATURATION 89.7 % (94-97); ABG PCO2 (T) 28.3 mmHg (35.0-48.0); ABG PO2 (T) 55.4 mmHg (75.0-100.0); ALLEN'S TEST POSITIVE; FCOHb 0.8 % (0.0-3.9); FLOW 6 L/min; TOTAL HEMOGLOBIN 11.8 G/dl (14.0-18.0)
[2020-06-16] MEDS ORDERED: heparin, porcine 5000 units/ml vial SQ SCH ×2 (13:10→20:00)
[2020-06-16 14:25] LABS: ABG BASE EXCESS -4.6 mmol/L (-2.0-2.0); ABG HCO3 17.5 mmol/L (22.0-26.0); ABG OXYGEN SATURATION 96.7 % (94-97); ABG PCO2 (T) 25.2 mmHg (35.0-48.0); ABG PO2 (T) 86.8 mmHg (75.0-100.0); ALLEN'S TEST POSITIVE; FCOHb 0.7 % (0.0-3.9); FLOW 9 L/min; FMetHb 0.1 % (0.0-1.5); FO2Hb 95.9 % (94-97); TOTAL HEMOGLOBIN 13.3 G/dl (14.0-18.0)
[2020-06-16] MEDS ORDERED: acetaminophen 325mg tablet PO PRN (15:10)
[2020-06-16] MEDS ORDERED: albuterol 2.5 MG/3 ML nebule NEB PRN (15:10)
[2020-06-16] MEDS ORDERED: magnesium hydroxide 30ml (MOM) UD suspension PO PRN (15:10)
[2020-06-16] MEDS ORDERED: mag hydrox/Alum hydrox/simeth 30ml oral suspension PO PRN (15:10)
[2020-06-16] MEDS ORDERED: morphine 2 MG/ML inj. syringe IV PRN (15:10)
[2020-06-16] MEDS ORDERED: ondansetron/PF 4mg/2ml inj IV PRN (15:10)
--- NOTE | 2020-06-16 16:10 | NUR ---
Patient in room PCU 3008. I have received report from Braydon GONGORA and had the opportunity to ask questions and assume patient care.
--- NOTE | 2020-06-16 17:42 | NUR ---
Page Sent promotional table spacer PAGER ID: [phone] MESSAGE: [phone] Hong. Patient pt in Afib HR sustaining at 59 but has dipped to low 40s and high 30s. Lowest HR was 38. Zoya [id number]
[2020-06-16 17:50] VITALS: BP 127/51
[2020-06-16 18:00] VITALS: BP 138/60
--- NOTE | 2020-06-16 18:00 | NUR ---
Problems reprioritized. Patient report given, questions answered & plan of care reviewed with Yenifer GONGORA.
--- NOTE | 2020-06-16 18:01 | NUR ---
Dr. Massey called and told me to keep monitoring his HR no new orders at this time. He is aware that patient dips into high 30s and low 40s.
--- NOTE | 2020-06-16 18:33 | NUR ---
Patient in room PCU 3008. I have received report from Maria Teresa GONGORA and had the opportunity to ask questions and assume patient care.
--- NOTE | 2020-06-16 19:14 | NUR ---
PAGER ID: [phone] MESSAGE: Patient Tio Pitts Rm [id number] Patient is diabetic and has high blood sugars. Can we get the hyperglycemic protocol ordered? Thank you! Yenifer GONGORA ext. [phone]
[2020-06-16] MEDS ORDERED: dextrose ORAL solution 15 GM/59 ML bottle PO PRN ×2 (19:35)
[2020-06-16] MEDS ORDERED: MESSAGE TO PHARMACY PO ONE (19:35)
[2020-06-16] MEDS ORDERED: dextrose 50%-water 50ml dispensing syringe IV PRN ×2 (19:35)
[2020-06-16] MEDS ORDERED: glucagon, human recombinant 1mg kit SUBCUT PRN (19:35)
--- NOTE | 2020-06-16 19:47 | NUR ---
Patient had BG of 316 but no hyperglycemic protocol ordered. Was able to obtain order from Dr. Bean now. Patient has not yet received dinner tray so will get patient dinner tray and then cover with insulin appropriately per the protocol.
[2020-06-16] MEDS ORDERED: furosemide 10 MG/1 ML 10ml inj IV SCH (20:00)
[2020-06-16] MEDS: insulin Lispro (HumaLOG) vial - multi-dose SQ SCH ×2 (20:31→21:42)
[2020-06-16] MEDS: insulin glargine (Lantus) pen - multi-dose SQ SCH (21:41)
[2020-06-16 22:00] VITALS: BP 128/57
--- NOTE | 2020-06-17 00:37 | NUR ---
PAGER ID: [phone] MESSAGE: Patient Tio Pitts RM 7399 FYI patient is still a -fib but heart rate is often in the 30's and 40's. His heart rate has been low since he got here but it is sustaining lower while he is sleeping. Yenifer GONGORA ext. [phone]
--- NOTE | 2020-06-17 00:40 | NUR ---
Dr. Bean notified of patient's heart rate getting into the 30's. She said she will review his medications. No new orders for now.
--- NOTE | 2020-06-17 00:46 | NUR ---
Dr. Bean called back and said she does not see any medications which would be contributing to his low heart rate and as long as he is asymptomatic and his blood pressure remains stable we will just continue to monitor.
[2020-06-17 02:00] VITALS: BP 115/48
--- NOTE | 2020-06-17 05:20 | NUR ---
Patient has done fairly well this shift. He remains on airborne isolation precautions for a positive covid test. He began the shift on 9 liters high flow nasal cannula and was sating 100% so was slowly weaned down about a liter at a time. He is currently on 5 liters high flow NC and is still sating in the mid to high 90's. His blood pressure has been stable. His heart rate has been low. He is a-fib but rate has been 40's and 50's but sometimes will get into the 30's. The MD is aware and patient is asymptomatic so we are just continuing to monitor at this time. He has ambulated to the bathroom with assistance x2 and does have diarrhea but is continent. He does not complain of abdominal pain. A wound care consult was placed for some areas of concern. He did make a comment about not thinking that he really has covid and that he thinks it may be a government scheme to put fear in people. It was explained to him that he actually had a positive nasal swab ran by the lab and he was attentive with teaching but its unknown if he still has doubts about really having the virus. He states that he does not have any of the symptoms. Will continue to educate patient as necessary. He has been resting well this shift and denies pain. All safety precautions in place. Will continue to monitor.
[2020-06-17 06:13] LABS: BASOPHILS % (AUTO) 0.3 % (0-1); LYMPHOCYTES # (AUTO) 0.8 X10'3 (1.1-4.8); MEAN CORPUSCULAR HEMOGLOBIN 29.4 PG (27.0-31.0); NEUTROPHILS # (AUTO) 1.4 X10'3 (1.8-7.7); PLATELET COUNT 113 X10'3 (140-440); WHITE BLOOD COUNT 2.4 X10'3 (4.5-11.0)
[2020-06-17 06:17] LABS: EOSINOPHILS % (AUTO) 0.1 % (0-6); HEMATOCRIT 34.1 % (42.0-52.0); HEMOGLOBIN 11.2 g/dl (14.0-17.9); LYMPHOCYTES % (AUTO) 31.7 % (21-51); MEAN CORPUSCULAR HGB CONC 32.8 g/dL (33.0-36.5); MEAN CORPUSCULAR VOLUME 89.8 FL (78-98); MEAN PLATELET VOLUME 10.1 FL (7.4-10.4); MONOCYTES # (AUTO) 0.3 X10'3 (0-0.9); MONOCYTES % (AUTO) 10.4 % (2-12); NEUTROPHILS % (AUTO) 57.5 % (42-75); RED BLOOD COUNT 3.79 X10'6 (4.70-6.10); RED CELL DISTRIBUTION WIDTH 15.3 % (11.5-14.5)
--- NOTE | 2020-06-17 06:19 | NUR ---
Patient in room PCU 3008. I have received report from Maria Teresa GONGORA and had the opportunity to ask questions and assume patient care.
[2020-06-17 06:30] LABS: ALBUMIN 2.5 G/DL (3.4-5.0); ANION GAP 13 (8-16); BLOOD UREA NITROGEN 67 MG/DL (7-18); BUN/CREATININE RATIO 19.6 (5.4-32.0); C-REACTIVE PROTEIN 5.01 MG/DL (0.0-0.5); CALCIUM 7.9 MG/DL (8.5-10.1); CHLORIDE 98 MMOL/L (99-107); CREATININE 3.42 MG/DL (0.60-1.10); GLUCOSE 370 MG/DL (70-104); LACTATE DEHYDROGENASE 604 U/L (85-227); POTASSIUM 4.4 MMOL/L (3.5-5.1); SODIUM 131 MMOL/L (135-145); TOTAL CARBON DIOXIDE 20.4 MMOL/L (24-32); eGFR 18 ML/MIN
[2020-06-17 06:56] LABS: TOTAL CELLS COUNTED 100
[2020-06-17 06:57] LABS: ANISOCYTOSIS 1+; PLATELET ESTIMATE DECREASED
[2020-06-17 06:58] LABS: SCHISTOCYTES 1+; SPHEROCYTES 1+
[2020-06-17 07:00] VITALS: BP 157/60
[2020-06-17] MEDS ORDERED: ALBUTEROL INHALER 1 PUFF/90 MCG INHALER IH PRN (07:19)
--- NOTE | 2020-06-17 07:45 | NUR ---
Page Sent promotional table spacer PAGER ID: [phone] MESSAGE: [phone] Hong. Patient sustaining HR in low 40s frequently dipping into the 30s and has gone done into the 20s 2x in the last 10 min. Zoya [id number]
--- NOTE | 2020-06-17 07:50 | NUR ---
Dr. Dexter gave a telephone order to continue monitoring patient HR and to confirm that the monitor is accurate by palpating pulse. He wanted me to notify him if the patient becomes symptomatic.
[2020-06-17] MEDS ORDERED: dexamethasone inj 6 MG in normal saline 100ml IV soln 100 ML IV SCH (08:00)
[2020-06-17] MEDS ORDERED: CefTRIAXone/D5W-Rocephin 1gm 50 ML IV SCH (08:00)
[2020-06-17] MEDS ORDERED: lisinopril 20mg tablet PO SCH (08:00)
[2020-06-17] MEDS ORDERED: furosemide 10 MG/1 ML 10ml inj IV SCH (08:00)
[2020-06-17] MEDS ORDERED: DULAGLUTIDE 1.5 MG/0.5 ML SQ SCH (08:00)
[2020-06-17] MEDS: isosorbide mononitrate 30mg tab.SR.24H PO SCH (08:26)
[2020-06-17] MEDS: atorvastatin 20mg tablet PO SCH (08:26)
[2020-06-17] MEDS ORDERED: normal saline 1000ml 1,000 ML IV SCH (09:40)
[2020-06-17 10:25] LABS: D-DIMER 1.63 MG/L FEU (0-0.50)
[2020-06-17 11:00] VITALS: BP 149/67
--- NOTE | 2020-06-17 11:01 | NUR ---
Nutrition consult "DM, poor appetite": Pt admit w/ covid-19 DX hx CHF, HTN, T2DM. Pt has no significant weakness, BLE trace edema, and no significant wt change hx since November admit. BMI 42 w/ no wt method yet this admit. Pt does not meet minimum malnutrition criteria at this time. A1C 7.9 and seen by PABLITO 04/26 admit. NPO at this time; PABLITO d/w RN regarding advancement to carb controlled diet at medically indicated. Addendum: 06/17/20 at [address] Amended: Links added.
[2020-06-17] MEDS: ALBUTEROL INHALER 1 PUFF/90 MCG INHALER IH PRN (12:20)
--- NOTE | 2020-06-17 13:18 | NUR ---
Wound care was given a referral to evaluate right 4th toe, and bilateral groin. Spoke with nursing regarding patient, No photos in chart. Nursing stated the 4th toe was a scab, she will clean it with wound cleanser, I also stated she could use betadine to help keep it dry. The groin is slightly red related to moisture, I recommend using Interdry Ag to this area. Nutrashield to feet as needed. RECOMMEND: 1. Daily bathing with no rinse skin cleanser. 2. Cream/Lotion to be applied to skin after bathing. 3. Annamarie care Q shift and prn soiling followed by with Barrier Cream. 4. Turn patient Q 1-2 hrs and reposition with pillows. 5. Float heels to offload pressure. 6. Interdry Ag to groin folds. Nutrashield to feet.
[2020-06-17] MEDS: insulin Lispro (HumaLOG) vial - multi-dose SQ SCH ×3 (13:32→21:07)
[2020-06-17 15:00] VITALS: BP 148/59
--- NOTE | 2020-06-17 17:09 | NUR ---
Interdry sheets applied to patient abdominal pannus and groin area. Will continue to closely monitor patient's skin condition.
[2020-06-17 18:00] VITALS: BP 148/68
--- NOTE | 2020-06-17 18:20 | NUR ---
Problems reprioritized. Patient report given, questions answered & plan of care reviewed with Ree GONGORA.
--- NOTE | 2020-06-17 18:33 | NUR ---
Patient in room PCU 3008. I have received report from Zoya GONGORA and had the opportunity to ask questions and assume patient care.
--- NOTE | 2020-06-17 21:02 | NUR ---
PAGER ID: [phone] MESSAGE: Tio Pitts [phone]: FYI Patient's current blood glucose is 490. Will cover with 10 units of humalog and 7 units of lantus per the protocol. -Ree GONGORA [phone]
[2020-06-17] MEDS: insulin glargine (Lantus) pen - multi-dose SQ SCH (21:06)
[2020-06-17 22:00] VITALS: BP 147/67
[2020-06-18 02:00] VITALS: BP 149/65
[2020-06-18 05:42] VITALS: BP 163/83
[2020-06-18 06:07] LABS: BASOPHILS % (AUTO) 0.1 % (0-1); EOSINOPHILS % (AUTO) 0 % (0-6); HEMATOCRIT 34.1 % (42.0-52.0); HEMOGLOBIN 11.3 g/dl (14.0-17.9); LYMPHOCYTES # (AUTO) 0.8 X10'3 (1.1-4.8); LYMPHOCYTES % (AUTO) 8.4 % (21-51); MEAN CORPUSCULAR HEMOGLOBIN 29.4 PG (27.0-31.0); MEAN CORPUSCULAR HGB CONC 33.1 g/dL (33.0-36.5); MEAN CORPUSCULAR VOLUME 88.8 FL (78-98); MEAN PLATELET VOLUME 9.7 FL (7.4-10.4); MONOCYTES # (AUTO) 0.6 X10'3 (0-0.9); MONOCYTES % (AUTO) 6.2 % (2-12); NEUTROPHILS # (AUTO) 7.7 X10'3 (1.8-7.7); NEUTROPHILS % (AUTO) 85.3 % (42-75); PLATELET COUNT 166 X10'3 (140-440); RED BLOOD COUNT 3.84 X10'6 (4.70-6.10); RED CELL DISTRIBUTION WIDTH 15.2 % (11.5-14.5)
--- NOTE | 2020-06-18 06:20 | NUR ---
Problems reprioritized. Patient report given, questions answered & plan of care reviewed with Diane GONGORA.
[2020-06-18 06:21] LABS: ALBUMIN 2.6 G/DL (3.4-5.0); ANION GAP 10 (8-16); BLOOD UREA NITROGEN 73 MG/DL (7-18); BUN/CREATININE RATIO 25.7 (5.4-32.0); CALCIUM 7.9 MG/DL (8.5-10.1); CHLORIDE 102 MMOL/L (99-107); CREATININE 2.84 MG/DL (0.60-1.10); GLUCOSE 332 MG/DL (70-104); LACTATE DEHYDROGENASE 628 U/L (85-227); POTASSIUM 4.6 MMOL/L (3.5-5.1); SODIUM 134 MMOL/L (135-145); TOTAL CARBON DIOXIDE 22.2 MMOL/L (24-32); eGFR 22 ML/MIN
--- NOTE | 2020-06-18 06:35 | NUR ---
Patient in room PCU 3008. I have received report from Ree GONGORA and had the opportunity to ask questions and assume patient care.
[2020-06-18] MEDS ORDERED: furosemide 40mg/4ml inj IV SCH (08:00)
[2020-06-18] MEDS: insulin Lispro (HumaLOG) vial - multi-dose SQ SCH ×4 (09:04→21:09)
[2020-06-18] MEDS: isosorbide mononitrate 30mg tab.SR.24H PO SCH (09:06)
[2020-06-18] MEDS: atorvastatin 20mg tablet PO SCH (09:06)
[2020-06-18] MEDS: dexamethasone 4mg tablet PO SCH (09:06)
[2020-06-18] MEDS: CefTRIAXone inj 2,000 MG in normal saline 100ml IV soln 100 ML IV SCH (09:07)
[2020-06-18] MEDS: furosemide 20 MG/2 ML vial IV SCH ×2 (09:10→19:03)
[2020-06-18 11:00] VITALS: BP 171/79
[2020-06-18 15:00] VITALS: BP 160/72
[2020-06-18 18:00] VITALS: BP 158/70
--- NOTE | 2020-06-18 18:16 | NUR ---
Patient in room PCU 3008. I have received report from Diane GONGORA and had the opportunity to ask questions and assume patient care.
--- NOTE | 2020-06-18 18:18 | NUR ---
Problems reprioritized. Patient report given, questions answered & plan of care reviewed with Ree GONGORA.
[2020-06-18] MEDS: cloNIDine 0.1 mg tablet PO SCH (19:03)
[2020-06-18] MEDS: lactobacillus rhamnosus 10,000 MMU CELLS/CAPSULE PO SCH (19:03)
[2020-06-18] MEDS: insulin glargine (Lantus) pen - multi-dose SQ SCH (21:08)
[2020-06-18 22:00] VITALS: BP 149/68
[2020-06-19] VITALS (7 sets, daily range): BP systolic 144–165; BP diastolic 62–80
[2020-06-19] MEDS: hydrALAZINE 25 MG tablet PO SCH ×3 (00:30→18:10)
[2020-06-19 01:07] LABS: BASOPHILS % (AUTO) 0.1 % (0-1); EOSINOPHILS % (AUTO) 0 % (0-6); HEMATOCRIT 34.5 % (42.0-52.0); HEMOGLOBIN 11.3 g/dl (14.0-17.9); LYMPHOCYTES # (AUTO) 0.6 X10'3 (1.1-4.8); LYMPHOCYTES % (AUTO) 5.5 % (21-51); MEAN CORPUSCULAR HEMOGLOBIN 29.1 PG (27.0-31.0); MEAN CORPUSCULAR HGB CONC 32.7 g/dL (33.0-36.5); MEAN CORPUSCULAR VOLUME 88.9 FL (78-98); MEAN PLATELET VOLUME 9.2 FL (7.4-10.4); MONOCYTES # (AUTO) 0.7 X10'3 (0-0.9); MONOCYTES % (AUTO) 5.9 % (2-12); NEUTROPHILS % (AUTO) 88.5 % (42-75); PLATELET COUNT 180 X10'3 (140-440); RED BLOOD COUNT 3.89 X10'6 (4.70-6.10); RED CELL DISTRIBUTION WIDTH 15.1 % (11.5-14.5); WHITE BLOOD COUNT 11.3 X10'3 (4.5-11.0)
[2020-06-19 01:22] LABS: ALBUMIN 2.6 G/DL (3.4-5.0); ANION GAP 11 (8-16); BLOOD UREA NITROGEN 76 MG/DL (7-18); C-REACTIVE PROTEIN 2.05 MG/DL (0.0-0.5); CALCIUM 8.2 MG/DL (8.5-10.1); CHLORIDE 105 MMOL/L (99-107); CREATININE 2.45 MG/DL (0.60-1.10); GLUCOSE 187 MG/DL (70-104); LACTATE DEHYDROGENASE 772 U/L (85-227); POTASSIUM 4.1 MMOL/L (3.5-5.1); SODIUM 139 MMOL/L (135-145); eGFR 26 ML/MIN
--- NOTE | 2020-06-19 06:04 | NUR ---
Problems reprioritized. Patient report given, questions answered & plan of care reviewed with Diane GONGORA.
--- NOTE | 2020-06-19 06:36 | NUR ---
Patient in room PCU 3008. I have received report from Ree GONGORA and had the opportunity to ask questions and assume patient care.
[2020-06-19] MEDS: loratadine 10mg tablet PO SCH (08:00)
[2020-06-19] MEDS: insulin Lispro (HumaLOG) vial - multi-dose SQ SCH ×3 (09:55→19:28)
[2020-06-19] MEDS: atorvastatin 20mg tablet PO SCH (09:57)
[2020-06-19] MEDS: CefTRIAXone inj 2,000 MG in normal saline 100ml IV soln 100 ML IV SCH (09:57)
[2020-06-19] MEDS: amLODIPine 5mg tablet PO SCH (09:58)
[2020-06-19] MEDS: isosorbide mononitrate 30mg tab.SR.24H PO SCH (09:58)
[2020-06-19] MEDS: cloNIDine 0.1 mg tablet PO SCH ×2 (09:59→19:28)
[2020-06-19] MEDS: dexamethasone 4mg tablet PO SCH (09:59)
[2020-06-19] MEDS: lactobacillus rhamnosus 10,000 MMU CELLS/CAPSULE PO SCH ×2 (09:59→19:29)
[2020-06-19] MEDS: furosemide 20 MG/2 ML vial IV SCH (10:00)
--- NOTE | 2020-06-19 13:46 | NUR ---
Wound care checking up on pt. Per pt's primary RN, Diane, intertrigo concerns are improving, though the issue is still present. No new concerns or supplies were requested. Will continue to follow.
--- NOTE | 2020-06-19 18:13 | NUR ---
Patient in room PCU 3008. I have received report from Diane GONGORA and had the opportunity to ask questions and assume patient care.
--- NOTE | 2020-06-19 18:18 | NUR ---
Problems reprioritized. Patient report given, questions answered & plan of care reviewed with Keily GONGORA.
[2020-06-19] MEDS: furosemide 40mg/4ml inj IV SCH (21:31)
[2020-06-19] MEDS: insulin glargine (Lantus) pen - multi-dose SQ SCH (21:37)
[2020-06-20] MEDS: hydrALAZINE 25 MG tablet PO SCH ×3 (00:31→16:20)
[2020-06-20 01:33] LABS: ALBUMIN 2.8 G/DL (3.4-5.0); ANION GAP 8 (8-16); BLOOD UREA NITROGEN 80 MG/DL (7-18); BUN/CREATININE RATIO 33.1 (5.4-32.0); C-REACTIVE PROTEIN 1.69 MG/DL (0.0-0.5); CALCIUM 8.2 MG/DL (8.5-10.1); CHLORIDE 107 MMOL/L (99-107); CREATININE 2.42 MG/DL (0.60-1.10); GLUCOSE 194 MG/DL (70-104); LACTATE DEHYDROGENASE 898 U/L (85-227); SODIUM 139 MMOL/L (135-145); TOTAL CARBON DIOXIDE 23.9 MMOL/L (24-32); eGFR 26 ML/MIN
[2020-06-20 01:58] LABS: BASOPHILS % (AUTO) 0.1 % (0-1); EOSINOPHILS % (AUTO) 0 % (0-6); HEMATOCRIT 36.5 % (42.0-52.0); HEMOGLOBIN 11.8 g/dl (14.0-17.9); LYMPHOCYTES # (AUTO) 0.5 X10'3 (1.1-4.8); LYMPHOCYTES % (AUTO) 4.9 % (21-51); MEAN CORPUSCULAR HEMOGLOBIN 28.6 PG (27.0-31.0); MEAN CORPUSCULAR HGB CONC 32.3 g/dL (33.0-36.5); MEAN CORPUSCULAR VOLUME 88.5 FL (78-98); MEAN PLATELET VOLUME 9.1 FL (7.4-10.4); MONOCYTES # (AUTO) 0.6 X10'3 (0-0.9); NEUTROPHILS # (AUTO) 9.3 X10'3 (1.8-7.7); PLATELET COUNT 195 X10'3 (140-440); RED BLOOD COUNT 4.12 X10'6 (4.70-6.10); RED CELL DISTRIBUTION WIDTH 15.4 % (11.5-14.5); WHITE BLOOD COUNT 10.5 X10'3 (4.5-11.0)
[2020-06-20 02:00] VITALS: BP 145/67
--- NOTE | 2020-06-20 05:33 | NUR ---
Messaged Dr Levi about a change in patient condition when his o2 saturation dropped to into the 70's. Attempted to increase the o2 saturation with increasing the high flow nasal cannula to 15 liters. When the patient continued to have low 80's sats and increased effort I paged respiratory for an alternative to increase O2 and decreased the amount of work involved for the patient. The patients o2 improved and is now in the 90's with less effort on the patients part. PAGER ID: [phone] MESSAGE: Re: Tio Pitts rm 300. O2 sats dropped to 70s at 10 liters on a high flow cannula. Increased to 15 L which did not improve O2 sats, Respiratory placed pt on high flow tower at 40 liters 80%. Pt o2 saturation at 98%.
--- NOTE | 2020-06-20 06:13 | NUR ---
Problems reprioritized. Patient report given, questions answered & plan of care reviewed with Kamila GONGORA.
--- NOTE | 2020-06-20 06:50 | NUR ---
Patient in room PCU 3008. I have received report from ROLAN Michaud and had the opportunity to ask questions and assume patient care.
[2020-06-20 07:30] VITALS: BP 144/65
[2020-06-20] MEDS: furosemide 40mg/4ml inj IV SCH ×3 (07:47→21:35)
[2020-06-20] MEDS: CefTRIAXone inj 2,000 MG in normal saline 100ml IV soln 100 ML IV SCH (07:48)
[2020-06-20] MEDS: dexamethasone 4mg tablet PO SCH (07:49)
[2020-06-20] MEDS: isosorbide mononitrate 30mg tab.SR.24H PO SCH (07:50)
[2020-06-20] MEDS: lactobacillus rhamnosus 10,000 MMU CELLS/CAPSULE PO SCH ×2 (07:52→19:43)
[2020-06-20] MEDS: atorvastatin 20mg tablet PO SCH (07:53)
[2020-06-20] MEDS: amLODIPine 5mg tablet PO SCH (07:54)
[2020-06-20] MEDS: loratadine 10mg tablet PO SCH (07:55)
[2020-06-20] MEDS: cloNIDine 0.1 mg tablet PO SCH ×2 (07:55→19:43)
[2020-06-20] MEDS: insulin Lispro (HumaLOG) vial - multi-dose SQ SCH ×3 (09:28→19:48)
[2020-06-20 12:16] VITALS: BP 123/65
--- NOTE | 2020-06-20 15:42 | NUR ---
Initial: Pt admit w/ Covid-19, baseline CHF EF 50%, and CKD 3 currently improving per MD. PO 75-100% avg carb controlled/heart healthy meals; double eggs at breakfast and double meats BIDLD added to meals given good PO and protein needs. Dietary notified. Glu 272 this AM started on decadron 06/18; RD d/w RN regarding basal coverage increase if MD agreeable since receiving 10 Lantus consistently. CRP down from prior w/ Lactate dehydrogenase increasing per MD note. LBM 06/18. Will continue to monitor for additional protein needs this admit. Rec: 1. continue carb controlled/heart healthy diet 2. double eggs at breakfast; double meats BIDLD 3. routine bowel care 4. scaled wts Addendum: 06/20/20 at [address] Amended: Links added.
[2020-06-20 16:18] VITALS: BP 127/62
[2020-06-20 18:00] VITALS: BP 135/67
--- NOTE | 2020-06-20 18:10 | NUR ---
Problems reprioritized. Patient report given, questions answered & plan of care reviewed with ROLAN Michaud. Patient stable at transfer of care.
--- NOTE | 2020-06-20 18:30 | NUR ---
Patient in room PCU 3008. I have received report from Kamila GONGORA and had the opportunity to ask questions and assume patient care.
[2020-06-20] MEDS: insulin glargine (Lantus) pen - multi-dose SQ SCH (21:13)
[2020-06-20 22:00] VITALS: BP 139/69
[2020-06-21] VITALS (7 sets, daily range): BP systolic 96–159; BP diastolic 53–73
[2020-06-21] MEDS: hydrALAZINE 25 MG tablet PO SCH ×4 (00:51→23:22)
[2020-06-21 01:32] LABS: BASOPHILS # (AUTO) 0.1 X10'3 (0-0.2); BASOPHILS % (AUTO) 0.7 % (0-1); EOSINOPHILS % (AUTO) 0 % (0-6); HEMATOCRIT 34.5 % (42.0-52.0); HEMOGLOBIN 11.1 g/dl (14.0-17.9); LYMPHOCYTES # (AUTO) 0.6 X10'3 (1.1-4.8); LYMPHOCYTES % (AUTO) 4.3 % (21-51); MEAN CORPUSCULAR HEMOGLOBIN 29.1 PG (27.0-31.0); MEAN CORPUSCULAR HGB CONC 32.3 g/dL (33.0-36.5); MEAN CORPUSCULAR VOLUME 90.1 FL (78-98); MEAN PLATELET VOLUME 9.1 FL (7.4-10.4); MONOCYTES # (AUTO) 0.7 X10'3 (0-0.9); MONOCYTES % (AUTO) 4.8 % (2-12); NEUTROPHILS # (AUTO) 12.7 X10'3 (1.8-7.7); NEUTROPHILS % (AUTO) 90.2 % (42-75); PLATELET COUNT 198 X10'3 (140-440); RED BLOOD COUNT 3.83 X10'6 (4.70-6.10); RED CELL DISTRIBUTION WIDTH 15.3 % (11.5-14.5); WHITE BLOOD COUNT 14.1 X10'3 (4.5-11.0)
[2020-06-21 01:45] LABS: ALBUMIN 2.8 G/DL (3.4-5.0); ANION GAP 13 (8-16); BLOOD UREA NITROGEN 90 MG/DL (7-18); BUN/CREATININE RATIO 33.5 (5.4-32.0); C-REACTIVE PROTEIN 1.74 MG/DL (0.0-0.5); CALCIUM 8.3 MG/DL (8.5-10.1); CHLORIDE 105 MMOL/L (99-107); CREATININE 2.69 MG/DL (0.60-1.10); GLUCOSE 275 MG/DL (70-104); LACTATE DEHYDROGENASE 956 U/L (85-227); POTASSIUM 4.3 MMOL/L (3.5-5.1); SODIUM 139 MMOL/L (135-145); eGFR 23 ML/MIN
--- NOTE | 2020-06-21 06:00 | NUR ---
Problems reprioritized. Patient report given, questions answered & plan of care reviewed with Kamila GONGORA.
--- NOTE | 2020-06-21 06:07 | NUR ---
Patient in room PCU 3008. I have received report from ROLAN Michaud and had the opportunity to ask questions and assume patient care.
[2020-06-21] MEDS: atorvastatin 20mg tablet PO SCH (07:58)
[2020-06-21] MEDS: cloNIDine 0.1 mg tablet PO SCH ×2 (07:59→19:47)
[2020-06-21] MEDS: isosorbide mononitrate 30mg tab.SR.24H PO SCH (08:00)
[2020-06-21] MEDS: lactobacillus rhamnosus 10,000 MMU CELLS/CAPSULE PO SCH ×2 (08:01→19:48)
[2020-06-21] MEDS: amLODIPine 5mg tablet PO SCH (08:01)
[2020-06-21] MEDS: dexamethasone 4mg tablet PO SCH ×2 (08:02→19:48)
[2020-06-21] MEDS: loratadine 10mg tablet PO SCH (08:02)
[2020-06-21] MEDS: furosemide 40mg/4ml inj IV SCH ×3 (08:03→21:31)
[2020-06-21] MEDS: insulin Lispro (HumaLOG) vial - multi-dose SQ SCH ×4 (09:31→22:44)
--- NOTE | 2020-06-21 09:44 | NUR ---
Called blood bank on status of convalescent serum for patient, and per Rosaura in lab she had spoken with [facility] and that they should be receiving the serum there today and then they will send it here.
--- NOTE | 2020-06-21 11:44 | NUR ---
Orders for 10 units of Lantus to give on top of scheduled Hyper/hypoglycemia protocol because patient's blood glucose is high due to steroids. Orders put in per Dr. Crowell. Will continue to monitor.
--- NOTE | 2020-06-21 16:43 | NUR ---
Convalescent serum started. Patient's vital signs are temp 97.7, HR 67, RR 22, BP 141/66l. Will stay and make sure patient doesn't have reaction and will recheck vitals in 15 minutes.
--- NOTE | 2020-06-21 16:58 | NUR ---
Vitals at 15 minutes are temp 97.7, HR 81, RR 16, BP 131/74
--- NOTE | 2020-06-21 17:13 | NUR ---
Vitals are temp 98.2, HR 76, RR 14, BP 128/54. Will continue to monitor.
[2020-06-21] MEDS: dexamethasone 1mg tablet PO SCH (19:48)
--- NOTE | 2020-06-21 20:35 | NUR ---
Patient in room U 3008. I have received report from Kamila GONGORA and had the opportunity to ask questions and assume patient care. Addendum: 06/21/20 at 2037 by Keily Foley RN Report at 0754
[2020-06-21] MEDS: insulin glargine (Lantus) pen - multi-dose SQ SCH ×2 (21:00→21:34)
--- NOTE | 2020-06-22 | NUR ---
Per Dr. Levi, check change in HR and BP two hours after changing Cardizem drip from 5ml/hr to 7ml/hr. Addendum: 06/22/20 at 0623 by Keily Foley RN wrong pt
[2020-06-22 02:00] VITALS: BP 141/62
[2020-06-22 03:00] LABS: BASOPHILS # (AUTO) 0.1 X10'3 (0-0.2); BASOPHILS % (AUTO) 0.4 % (0-1); EOSINOPHILS % (AUTO) 0 % (0-6); HEMATOCRIT 30.7 % (42.0-52.0); HEMOGLOBIN 9.9 g/dl (14.0-17.9); LYMPHOCYTES # (AUTO) 0.6 X10'3 (1.1-4.8); MEAN CORPUSCULAR HEMOGLOBIN 28.9 PG (27.0-31.0); MEAN CORPUSCULAR HGB CONC 32.2 g/dL (33.0-36.5); MEAN CORPUSCULAR VOLUME 89.6 FL (78-98); MEAN PLATELET VOLUME 9.6 FL (7.4-10.4); MONOCYTES # (AUTO) 0.5 X10'3 (0-0.9); MONOCYTES % (AUTO) 3.3 % (2-12); NEUTROPHILS % (AUTO) 92.3 % (42-75); PLATELET COUNT 199 X10'3 (140-440); RED BLOOD COUNT 3.43 X10'6 (4.70-6.10); RED CELL DISTRIBUTION WIDTH 15.6 % (11.5-14.5); WHITE BLOOD COUNT 15.2 X10'3 (4.5-11.0)
[2020-06-22 03:10] LABS: ALANINE AMINOTRANSFERASE 40 U/L (12-78); ALBUMIN 2.7 G/DL (3.4-5.0); ALBUMIN/GLOBULIN RATIO 0.5 (1.1-1.5); ALKALINE PHOSPHATASE 168 IU/L (46-116); ANION GAP 13 (8-16); ASPARTATE AMINO TRANSFERASE 65 U/L (10-37); BILIRUBIN,TOTAL 1.3 MG/DL (0.1-1.0); BLOOD UREA NITROGEN 102 MG/DL (7-18); BUN/CREATININE RATIO 37.6 (5.4-32.0); CALCIUM 8.3 MG/DL (8.5-10.1); CHLORIDE 104 MMOL/L (99-107); CREATININE 2.71 MG/DL (0.60-1.10); GLUCOSE 259 MG/DL (70-104); LACTATE DEHYDROGENASE 1104 U/L (85-227); POTASSIUM 4.7 MMOL/L (3.5-5.1); SODIUM 138 MMOL/L (135-145); TOTAL CARBON DIOXIDE 21.5 MMOL/L (24-32); TOTAL PROTEIN 7.7 G/DL (6.4-8.2); eGFR 23 ML/MIN
[2020-06-22 05:00] VITALS: BP 160/105
--- NOTE | 2020-06-22 06:22 | NUR ---
Problems reprioritized. Patient report given, questions answered & plan of care reviewed with Gian GONGORA.
--- NOTE | 2020-06-22 06:35 | NUR ---
Patient in room PCU 3008. I have received report from Keily GONGORA and had the opportunity to ask questions and assume patient care.
--- NOTE | 2020-06-22 06:36 | NUR ---
COVID Convalescent antibodies given yesterday per night ROLAN Michaud.
[2020-06-22 07:00] VITALS: BP 125/66
[2020-06-22] MEDS: furosemide 40mg/4ml inj IV SCH ×4 (07:42→19:47)
[2020-06-22] MEDS: dexamethasone 4mg tablet PO SCH ×2 (07:42→19:48)
[2020-06-22] MEDS: cloNIDine 0.1 mg tablet PO SCH ×2 (07:43→19:47)
[2020-06-22] MEDS: lactobacillus rhamnosus 10,000 MMU CELLS/CAPSULE PO SCH ×2 (07:43→19:48)
[2020-06-22] MEDS: loratadine 10mg tablet PO SCH (07:43)
[2020-06-22] MEDS: atorvastatin 20mg tablet PO SCH (07:43)
[2020-06-22] MEDS: dexamethasone 1mg tablet PO SCH ×2 (07:43→19:48)
[2020-06-22] MEDS: hydrALAZINE 25 MG tablet PO SCH ×2 (07:46→16:00)
[2020-06-22] MEDS: amLODIPine 5mg tablet PO SCH (07:46)
[2020-06-22] MEDS: isosorbide mononitrate 30mg tab.SR.24H PO SCH (07:46)
[2020-06-22] MEDS: insulin Lispro (HumaLOG) vial - multi-dose SQ SCH ×3 (08:13→19:44)
[2020-06-22 10:19] LABS: HEMATOCRIT 32.4 % (42.0-52.0); HEMOGLOBIN 10.4 g/dl (14.0-17.9); MEAN CORPUSCULAR HEMOGLOBIN 29.1 PG (27.0-31.0); MEAN CORPUSCULAR HGB CONC 32.2 g/dL (33.0-36.5); MEAN CORPUSCULAR VOLUME 90.5 FL (78-98); MEAN PLATELET VOLUME 9.4 FL (7.4-10.4); PLATELET COUNT 181 X10'3 (140-440); RED BLOOD COUNT 3.58 X10'6 (4.70-6.10); RED CELL DISTRIBUTION WIDTH 15.9 % (11.5-14.5); WHITE BLOOD COUNT 13.3 X10'3 (4.5-11.0)
[2020-06-22 11:00] VITALS: BP 111/69
--- NOTE | 2020-06-22 13:29 | NUR ---
Paged Dr. Dexter. Tio Pitts, [id number]. Patient is scheduled to receive 10 units of Lantus at 2100 as well as Lantus protocol. 14 units were given per protocol but the 10 units was not given last night, RN note says patient refused. Gian [phone]
[2020-06-22 15:00] VITALS: BP_SYST 111; BP_SYST 136; BP_DIAS 47; BP_DIAS 69
--- NOTE | 2020-06-22 18:00 | NUR ---
Patient in room PCU 3008. I have received report from Gian GONGORA and had the opportunity to ask questions and assume patient care.
--- NOTE | 2020-06-22 18:10 | NUR ---
Problems reprioritized. Patient report given, questions answered & plan of care reviewed with Yessy GONGORA.
--- NOTE | 2020-06-22 18:45 | NUR ---
Lantus Orders Per earlier nurse note on 06/21/20 by AM: MD Dexter wants 10 units of Lantus given in addition to the Lantus given by protocol to stabilize sugars on Decadron. Will make miscellaneous nursing note order for next shifts on to clear up the confusion. Patient was educated on the importance of the extra Lantus at night for his climbing blood sugars in the morning.
--- NOTE | 2020-06-22 18:50 | NUR ---
PAGER ID: [phone] MESSAGE: [phone] Tio Pitts: Two orders for Lantus at , do you want the 10unit give and protocol together or just protocol or just 10units. Yessy GONGORA [phone]
--- NOTE | 2020-06-22 19:00 | NUR ---
Split Lantus dose matthew Jain called back about Lantus question, ordered to give 10 units for 2100 and recheck blood sugar at 0100 to give other 12 units of Lantus.
[2020-06-22] MEDS: insulin glargine (Lantus) pen - multi-dose SQ SCH (21:34)
[2020-06-23] MEDS: insulin glargine (Lantus) pen - multi-dose SQ SCH ×2 (00:35→21:00)
[2020-06-23] MEDS: hydrALAZINE 25 MG tablet PO SCH ×4 (00:36→23:57)
[2020-06-23] MEDS: ALBUTEROL INHALER 1 PUFF/90 MCG INHALER IH PRN ×2 (02:09→07:13)
--- NOTE | 2020-06-23 03:30 | NUR ---
Low Blood sugar Patient had a low blood sugar of 68 at 0030, Glucoshot was given. Protocol Lantus was not given for low blood sugar. Retested Blood sugar at 0330 and came up to 125. Will pass on to day shift, will now be level 5 per protocol.
--- NOTE | 2020-06-23 05:00 | NUR ---
Desaturation Patient desaturated to 75% while coughing and spitting up brown sputum multiple times this shift. Patient was able to come back up to 90% after 5 min. Will continue to monitor.
[2020-06-23 06:15] LABS: BASOPHILS # (AUTO) 0.1 X10'3 (0-0.2); BASOPHILS % (AUTO) 0.4 % (0-1); EOSINOPHILS % (AUTO) 0 % (0-6); HEMATOCRIT 33.2 % (42.0-52.0); HEMOGLOBIN 10.9 g/dl (14.0-17.9); LYMPHOCYTES # (AUTO) 0.7 X10'3 (1.1-4.8); LYMPHOCYTES % (AUTO) 4.3 % (21-51); MEAN CORPUSCULAR HEMOGLOBIN 29.5 PG (27.0-31.0); MEAN CORPUSCULAR HGB CONC 32.7 g/dL (33.0-36.5); MEAN CORPUSCULAR VOLUME 90.2 FL (78-98); MEAN PLATELET VOLUME 9.9 FL (7.4-10.4); MONOCYTES # (AUTO) 0.5 X10'3 (0-0.9); MONOCYTES % (AUTO) 2.9 % (2-12); NEUTROPHILS # (AUTO) 14.4 X10'3 (1.8-7.7); NEUTROPHILS % (AUTO) 92.4 % (42-75); PLATELET COUNT 187 X10'3 (140-440); RED BLOOD COUNT 3.68 X10'6 (4.70-6.10); RED CELL DISTRIBUTION WIDTH 15.5 % (11.5-14.5); WHITE BLOOD COUNT 15.6 X10'3 (4.5-11.0)
[2020-06-23 06:30] LABS: ALANINE AMINOTRANSFERASE 40 U/L (12-78); ALBUMIN 2.6 G/DL (3.4-5.0); ALBUMIN/GLOBULIN RATIO 0.5 (1.1-1.5); ALKALINE PHOSPHATASE 176 IU/L (46-116); ANION GAP 12 (8-16); ASPARTATE AMINO TRANSFERASE 67 U/L (10-37); BILIRUBIN,TOTAL 1.3 MG/DL (0.1-1.0); BLOOD UREA NITROGEN 122 MG/DL (7-18); BUN/CREATININE RATIO 45.4 (5.4-32.0); C-REACTIVE PROTEIN 1.47 MG/DL (0.0-0.5); CALCIUM 8.6 MG/DL (8.5-10.1); CHLORIDE 103 MMOL/L (99-107); CREATININE 2.69 MG/DL (0.60-1.10); GLUCOSE 176 MG/DL (70-104); LACTATE DEHYDROGENASE 1024 U/L (85-227); POTASSIUM 4.6 MMOL/L (3.5-5.1); SODIUM 136 MMOL/L (135-145); TOTAL CARBON DIOXIDE 20.6 MMOL/L (24-32); TOTAL PROTEIN 7.5 G/DL (6.4-8.2); eGFR 23 ML/MIN
--- NOTE | 2020-06-23 06:37 | NUR ---
Problems reprioritized. Patient report given, questions answered & plan of care reviewed with Jenni GONGORA.
--- NOTE | 2020-06-23 06:58 | NUR ---
Patient in room PCU 3008. I have received report from ROLAN Valenzuela and had the opportunity to ask questions and assume patient care.
[2020-06-23 07:07] LABS: PLATELET ESTIMATE NORMAL
[2020-06-23 07:10] LABS: BURR CELLS 2+; SCHISTOCYTES FEW
[2020-06-23 07:12] LABS: HYPOGRANULAR PLATELETS FEW; LARGE PLATELETS FEW
[2020-06-23] MEDS: dexamethasone 1mg tablet PO SCH ×2 (08:19→19:41)
[2020-06-23] MEDS: furosemide 40mg/4ml inj IV SCH ×2 (08:19→19:41)
[2020-06-23] MEDS: atorvastatin 20mg tablet PO SCH (08:19)
[2020-06-23] MEDS: lactobacillus rhamnosus 10,000 MMU CELLS/CAPSULE PO SCH ×2 (08:19→19:41)
[2020-06-23] MEDS: loratadine 10mg tablet PO SCH (08:19)
[2020-06-23] MEDS: dexamethasone 4mg tablet PO SCH ×2 (08:19→19:41)
[2020-06-23] MEDS: isosorbide mononitrate 30mg tab.SR.24H PO SCH (08:19)
[2020-06-23] MEDS: cloNIDine 0.1 mg tablet PO SCH ×2 (08:19→19:41)
[2020-06-23] MEDS: amLODIPine 5mg tablet PO SCH (08:21)
[2020-06-23 08:41] VITALS: BP 144/56
[2020-06-23] MEDS: insulin Lispro (HumaLOG) vial - multi-dose SQ SCH ×4 (09:21→22:31)
[2020-06-23 11:00] VITALS: BP 133/62
--- NOTE | 2020-06-23 11:54 | NUR ---
Awaiting orders PAGER ID: [phone] MESSAGE: Patient Hong 3008. civil drafting technician reports some slight ST elevation. Patient oxygen is destating in the low to mid 70's at rest, dyspnea present, rising to mid 80's after a few minutes. Please advise. [facility] [id number]
[2020-06-23] MEDS ORDERED: LORazepam 1 MG tablet PO PRN (12:10)
[2020-06-23] MEDS: LORazepam 0.5 MG tablet PO PRN (12:27)
--- NOTE | 2020-06-23 13:35 | NUR ---
Phone call to , discussed possible DNR status, she stated she would let me know in about an hour after she talks to family.
--- NOTE | 2020-06-23 14:26 | NUR ---
PAGER ID: [phone] MESSAGE: Patient Hong [phone]. After a few discussions patient expressed that he would like to change his code status to DNR, you can come talk to him when you can. Please advise. Jenni [phone]
[2020-06-23 15:00] VITALS: BP 144/59
--- NOTE | 2020-06-23 15:09 | NUR ---
Patient destat to 71%. Increased FIO2 to 75%, and 35 L oxygen. Patient at 83%. Will continue to monitor closely.
[2020-06-23 18:00] VITALS: BP 140/65
--- NOTE | 2020-06-23 18:00 | NUR ---
Patient in room PCU 3008. I have received report from Jenni GONGORA and had the opportunity to ask questions and assume patient care.
--- NOTE | 2020-06-23 18:08 | NUR ---
Problems reprioritized. Patient report given, questions answered & plan of care reviewed with ROLAN Valenzuela. Patient stable at transfer of care.
--- NOTE | 2020-06-23 18:59 | NUR ---
PAGER ID: [phone] MESSAGE: [phone] Tio Pitts: Last night Lantus 10 unit give was given at 2100 and blood sugar was 68 at 0030, protocol Lantus not given; Morning Blood sugar 228. Should I slit Lantus orders again? Give second dose at 0300? Yessy GONGORA [phone]
--- NOTE | 2020-06-23 19:00 | NUR ---
Lantus Order Change MD Jain ordered to give protocol Lantus at 2100, later recheck if necessary, give Lantus 10 unit at 0300.
[2020-06-23 21:25] LABS: ABG BASE EXCESS -12.3 mmol/L (-2.0-2.0); ABG HCO3 14.9 mmol/L (22.0-26.0); ABG OXYGEN SATURATION 88.9 % (94-97); ABG PCO2 (T) 39.3 mmHg (35.0-48.0); ABG PO2 (T) 69.7 mmHg (75.0-100.0); ALLEN'S TEST POSITIVE; FCOHb 0.1 % (0.0-3.9); FMetHb 0.2 % (0.0-1.5); FO2Hb 88.6 % (94-97); PATIENT TEMPERATURE 37.1; TOTAL HEMOGLOBIN 11.9 G/dl (14.0-18.0)
--- NOTE | 2020-06-23 21:45 | NUR ---
Rapid Response Patient's oxygen saturations 50-76%, Heart rate 30-40 beats per minute, was not responding to voice, pain, or sternal rubs. Blood sugar 260. labs were drawn. Lactic 4.6. ABGs signified acidosis. After 30 min patient was able to make eye contact but not say any words. After an hour patient was able to response with a word or two. Truong catheter was placed. Patient is exhausted and trying to sleep now, able to wake to voice and respond. Will continue to monitor.
[2020-06-23 22:00] VITALS: BP 146/75
[2020-06-23 22:11] LABS: ALANINE AMINOTRANSFERASE 44 U/L (12-78); ALBUMIN 2.6 G/DL (3.4-5.0); ALBUMIN/GLOBULIN RATIO 0.5 (1.1-1.5); ALKALINE PHOSPHATASE 193 IU/L (46-116); ANION GAP 13 (8-16); ASPARTATE AMINO TRANSFERASE 63 U/L (10-37); BILIRUBIN,TOTAL 1.4 MG/DL (0.1-1.0); BLOOD UREA NITROGEN 140 MG/DL (7-18); BUN/CREATININE RATIO 41.8 (5.4-32.0); CALCIUM 8.1 MG/DL (8.5-10.1); CHLORIDE 101 MMOL/L (99-107); CREATININE 3.35 MG/DL (0.60-1.10); GLUCOSE 288 MG/DL (70-104); POTASSIUM 4.2 MMOL/L (3.5-5.1); SODIUM 133 MMOL/L (135-145); TOTAL CARBON DIOXIDE 19.1 MMOL/L (24-32); TOTAL PROTEIN 7.4 G/DL (6.4-8.2); eGFR 18 ML/MIN
[2020-06-23 22:15] LABS: BASOPHILS % (AUTO) 0.3 % (0-1); EOSINOPHILS % (AUTO) 0 % (0-6); HEMATOCRIT 32.8 % (42.0-52.0); HEMOGLOBIN 10.6 g/dl (14.0-17.9); LYMPHOCYTES # (AUTO) 0.7 X10'3 (1.1-4.8); LYMPHOCYTES % (AUTO) 4.7 % (21-51); MEAN CORPUSCULAR HEMOGLOBIN 29.4 PG (27.0-31.0); MEAN CORPUSCULAR HGB CONC 32.2 g/dL (33.0-36.5); MEAN CORPUSCULAR VOLUME 91.2 FL (78-98); MEAN PLATELET VOLUME 9.8 FL (7.4-10.4); MONOCYTES # (AUTO) 0.5 X10'3 (0-0.9); MONOCYTES % (AUTO) 3.4 % (2-12); NEUTROPHILS # (AUTO) 14.2 X10'3 (1.8-7.7); NEUTROPHILS % (AUTO) 91.6 % (42-75); PLATELET COUNT 197 X10'3 (140-440); WHITE BLOOD COUNT 15.4 X10'3 (4.5-11.0)
--- NOTE | 2020-06-23 22:22 | NUR ---
PAGER ID: [phone] MESSAGE: [phone] Tio Pitts: Lactic 4.3. doing okay just on high flow. If desat again will put him on bipap. Would you like anything else? Yessy GONGORA [phone]
--- NOTE | 2020-06-23 22:51 | NUR ---
Post Rapid MD Jain called back stating that the patient will go on Bipap the next time he has a oxygen desaturation episode; the patient has a history of noncompliance and anxiety with Bipap machine. Family was updated on the situation at hand ( and both sons), the trending labs and overall state. MD Jain was made aware also of the family thinking of putting patient on a ventilator.
[2020-06-24 02:00] VITALS: BP 139/58
[2020-06-24] MEDS: LORazepam 0.5 MG tablet PO PRN (02:07)
[2020-06-24] MEDS ORDERED: insulin glargine (Lantus) pen - multi-dose SQ SCH (03:00)
[2020-06-24 03:23] LABS: BASOPHILS % (AUTO) 0.1 % (0-1); EOSINOPHILS % (AUTO) 0 % (0-6); HEMATOCRIT 30.1 % (42.0-52.0); HEMOGLOBIN 9.9 g/dl (14.0-17.9); LYMPHOCYTES # (AUTO) 0.4 X10'3 (1.1-4.8); LYMPHOCYTES % (AUTO) 2.6 % (21-51); MEAN CORPUSCULAR HEMOGLOBIN 29.1 PG (27.0-31.0); MEAN CORPUSCULAR VOLUME 88.1 FL (78-98); MEAN PLATELET VOLUME 9.8 FL (7.4-10.4); MONOCYTES # (AUTO) 0.6 X10'3 (0-0.9); MONOCYTES % (AUTO) 3.9 % (2-12); NEUTROPHILS # (AUTO) 13.8 X10'3 (1.8-7.7); NEUTROPHILS % (AUTO) 93.4 % (42-75); PLATELET COUNT 155 X10'3 (140-440); RED BLOOD COUNT 3.41 X10'6 (4.70-6.10); RED CELL DISTRIBUTION WIDTH 15.8 % (11.5-14.5); WHITE BLOOD COUNT 14.8 X10'3 (4.5-11.0)
[2020-06-24 03:38] LABS: ALANINE AMINOTRANSFERASE 36 U/L (12-78); ALBUMIN 2.3 G/DL (3.4-5.0); ALBUMIN/GLOBULIN RATIO 0.5 (1.1-1.5); ALKALINE PHOSPHATASE 176 IU/L (46-116); ANION GAP 12 (8-16); ASPARTATE AMINO TRANSFERASE 60 U/L (10-37); BILIRUBIN,TOTAL 1.2 MG/DL (0.1-1.0); BLOOD UREA NITROGEN 139 MG/DL (7-18); BUN/CREATININE RATIO 45.4 (5.4-32.0); C-REACTIVE PROTEIN 0.96 MG/DL (0.0-0.5); CALCIUM 7.9 MG/DL (8.5-10.1); CHLORIDE 103 MMOL/L (99-107); CREATININE 3.06 MG/DL (0.60-1.10); GLUCOSE 168 MG/DL (70-104); LACTATE DEHYDROGENASE 941 U/L (85-227); POTASSIUM 4.6 MMOL/L (3.5-5.1); SODIUM 135 MMOL/L (135-145); TOTAL CARBON DIOXIDE 20.3 MMOL/L (24-32); TOTAL PROTEIN 6.8 G/DL (6.4-8.2); eGFR 20 ML/MIN
--- NOTE | 2020-06-24 06:20 | NUR ---
Problems reprioritized. Patient report given, questions answered & plan of care reviewed with Arnie GONGORA.
--- NOTE | 2020-06-24 06:32 | NUR ---
Patient in room PCU 3008. I have received report from Yessy GONGORA and had the opportunity to ask questions and assume patient care.
--- NOTE | 2020-06-24 07:07 | NUR ---
PAGER ID: [phone] MESSAGE: [phone] Tio Pitts. Pt. HR decreased to the 20's, rapid response called. ICU at bedside. ext. [phone]
[2020-06-24 07:20] LABS: ABG BASE EXCESS -8.9 mmol/L (-2.0-2.0); ABG HCO3 16.3 mmol/L (22.0-26.0); ABG OXYGEN SATURATION 91.3 % (94-97); ABG PCO2 (T) 33.1 mmHg (35.0-48.0); FCOHb 0.3 % (0.0-3.9); FMetHb 0.2 % (0.0-1.5); FO2Hb 90.8 % (94-97); TOTAL HEMOGLOBIN 12.6 G/dl (14.0-18.0)
[2020-06-24] MEDS ORDERED: morphine 10mg/ml inj. IV PRN (07:25)
[2020-06-24] MEDS ORDERED: acetaminophen 325mg tablet PO PRN (07:25)
[2020-06-24] MEDS ORDERED: LORazepam 2 mg/ml vial IV PRN (07:25)
[2020-06-24] MEDS ORDERED: morphine 10mg/0.5ml (conc. morphine) oral syringe PO PRN (07:25)
--- NOTE | 2020-06-24 07:30 | NUR ---
Bradycardia and low oxygen saturation reported by surgical instrument technician, rapid response called. Once PPE was donned and upon entry of room, patient is unresponsive but has a pulse. Nasal cannula was out of patient's nose. Sternal rub applied, patient still unresponsive. Pulse palpable. Zoll applied. RT turned oxygen flow to 100%. ABG obtained. Patient started to come around and make grunting noises. Eyes opened. Oxygen saturation currently stable. Family of patient contacted and code status was changed to DNR with comfort care. Will continue to monitor.
--- NOTE | 2020-06-24 10:00 | NUR ---
Pt has been made DNR w/ comfort care. [facility] 06/23. Will continue to monitor. Addendum: 06/24/20 at [address] Amended: Links added.
--- NOTE | 2020-06-24 14:00 | NUR ---
RN IS TO DOCUMENT YES TO ALL APPLICABLE AREAS Pronouncement of : 1. Time Physician Notified: [id number] 2. Date of : 06/24 3. Time of : 1525 4. DNR/Withdraw life support documented: Y 5. Monitor strip has been placed on chart: Y 6. Assessment process is of one-minute duration and includes following criteria: a) Patient is unresponsive to all stimuli: Y b) Pupils fixed and non-reactive: Y c) Auscultation of precordium reveals absence of heart tones: Y d) Auscultation of lungs reveals absence of breath sounds: Y e) Absence of blood pressure / all vital signs: Y f) QRS complexes are not present on monitor / EKG strip: Y g) Pacer spikes without capture: 4. Comments: Y
--- NOTE | 2020-06-24 15:00 | NUR ---
traffic monitor specialist tech notified RN that leads were off. Upon entering room, patient found unresponsive and cyanotic, nasal cannula was off on the ground. Sternal rub applied with no response. Patient pulseless and not breathing. 2nd RN confirmed absence of heart tones and breath sounds.
--- NOTE | 2020-06-24 15:43 | NUR ---
Sent page to Dr. Dexter: PAGER ID: [phone] MESSAGE: [phone] Tio Pitts: I answered the patient's call light, he was found unresponsive with no pulse and not breathing. Myself and another RN pronounced him at 1525. Thanks, Diane [phone]
--- NOTE | 2020-06-24 18:00 | NUR ---
Patient in room PCU 3008. I have received report from Marly GONGORA and had the opportunity to ask questions and assume patient care. Waiting for transportation of the body.
--- NOTE | 2020-06-24 18:30 | NUR ---
Patient in room PCU 3008. I have received report from Arnie GONGORA and had the opportunity to ask questions and assume patient care.
--- NOTE | 2020-06-24 18:37 | NUR ---
Problems reprioritized. Patient report given, questions answered & plan of care reviewed with Yessy GONGORA.
--- NOTE | 2020-06-24 22:15 | NUR ---
Patient was picked up by mortuary assistance representative Raul Chapa from [facility]. Did pass on the information that the wedding band was still on the body and is documented. Patient has left the building at 2200.
== END 2020-06-24 22:18 | disposition expired | DRG 871 ==
LOC: ER 11:05 → ED HOLD 15:10 → PCU 3S 16:17
PROVIDERS: ADMIT Family Medicine; ATTEND Family Medicine
DX: A41.89 Other specified sepsis (principal); U07.1 COVID-19; J12.89 Other viral pneumonia; J96.01 Acute respiratory failure with hypoxia; I21.A1 Myocardial infarction type 2; J96.21 Acute and chronic respiratory failure with hypoxia; I48.20 Chronic atrial fibrillation, unspecified; I50.32 Chronic diastolic (congestive) heart failure; N17.9 Acute kidney failure, unspecified; I13.0 Hypertensive heart and chronic kidney disease with heart failure and stage 1 through stage 4 chronic kidney disease, or unspecified chronic kidney disease; A41.9 Sepsis, unspecified organism; N18.9 Chronic kidney disease, unspecified; E11.22 Type 2 diabetes mellitus with diabetic chronic kidney disease; N18.3 Chronic kidney disease, stage 3 (moderate); I48.91 Unspecified atrial fibrillation; I25.10 Atherosclerotic heart disease of native coronary artery without angina pectoris; E66.9 Obesity, unspecified; E78.00 Pure hypercholesterolemia, unspecified; E78.5 Hyperlipidemia, unspecified; G89.29 Other chronic pain; I49.5 Sick sinus syndrome; Z51.5 Encounter for palliative care; Z66 Do not resuscitate; Z79.01 Long term (current) use of anticoagulants; Z90.49 Acquired absence of other specified parts of digestive tract; Z88.8 Allergy status to other drugs, medicaments and biological substances
CPT/HCPCS: 36415; 36430; 36600; 71045; 80048; 80053; 82803; 82948; 83605; 83615; 83880; 84145; 84484; 85018; 85025; 85027; 85379; 86140; 86885; 86900; 86901; 87040; 87081; 87635; 93005; 94640; 94668; 94760; 96365; 96366; 96368; 96372; 96375; 99291; G0378; J0456; J0696; J1100; J1644; J1815; J1940; J7030; J8540; P9017